=== PATIENT | female | born 1945 | race Caucasian/White ===

== ENCOUNTER 2017-01-20 14:05 | Inpatient (IN) | payer OTHER ==
[2017-01-20] MEDS ORDERED: diphenhydrAMINE HCL 25 MG CAPSULE (FP) PO ONE ×2 (15:00→15:29)
[2017-01-20 15:22] LABS: MCH 31.4 pg (25.7-33.7); MCHC 33.8 g/dl (32.0-36.0); MEAN CELL VOLUME 92.9 fl (80-96); PLATELET COUNT 400 K/MM3 (134-434); RDW 13.8 % (11.6-15.6); WHITE BLOOD COUNT 15.4 K/mm3 (4.0-10.0)
--- NOTE | 2017-01-20 15:53 | PDOC ---
History of Present Illness - General History Source: Patient Exam Limitations: No Limitations - History of Present Illness Initial Comments: 01/20/17 15:59 The patient is a 71 year old female with a significant past medical history of asthma who presents to the ED with complaints of generalized for malaise for several days and a rash for 2 days. The patient reports she recently came back from a cruise on Saturday and since then has been experiencing symptoms of generalized weakness, loss of appetite, slight nonproductive cough and shortness of breath worsened with exertion. Patient notes she visited her PMD on Saturday and was diagnosed with a minor viral sinus infection and given robitussin. Patient also reports a sudden onset of an intermittent rash that started in her arms. She states the rash is progressively worsening and developed throughout her extremities and her back. Patient reports the rash is itchy. Patient denies recent changes in shampoo, soap or lotion. Patient denies recent consumption of seafood. Denies fevers or chills. Denies chest pain or palpitations. Denies abdominal pain, nausea, vomiting, or diarrhea. Denies changes in urinary output. Denies any other symptoms. <Aldo French - Last Filed: 01/20/17 15:59> - General History Source: Patient Exam Limitations: No Limitations <Denver Andino - Last Filed: 01/20/17 18:54> - General Chief Complaint: Shortness of Breath Stated Complaint: BODY PAIN/ RASH/ COUGH Time Seen by Provider: 01/20/17 14:40 Past History <Aldo French - Last Filed: 01/20/17 15:59> - Past Medical History Other medical history: NONE - Psycho/Social/Smoking Cessation Hx Anxiety: No Suicidal Ideation: No Smoking History: Former smoker Have you smoked in the past 12 months: No If you are a former smoker, when did you quit?: 1992 Information on smoking cessation initiated: No Hx Alcohol Use: No Drug/Substance Use Hx: No Substance Use Type: None <Denver Andino - Last Filed: 01/20/17 18:54> - Past Medical History Allergies/Adverse Reactions: Allergies Allergy/AdvReac Type Severity Reaction Status Date / Time No Known Allergies Allergy Verified 01/20/17 14:12 Home Medications: Ambulatory Orders Montelukast Na [Singulair -] 10 mg PO HS 01/20/17 Review of Systems - Review of Systems Able to Perform ROS?: Yes Comments:: 01/20/17 15:59 GENERAL/CONSTITUTIONAL:+ malaise, generalized weakness, loss of appetite. No fever or chills. HEAD, EYES, EARS, NOSE AND THROAT: No change in vision. No ear pain or discharge. No sore throat. CARDIOVASCULAR: No chest pain or shortness of breath. RESPIRATORY:+ cough, SOB with exertion. No wheezing, or hemoptysis. GASTROINTESTINAL: No nausea, vomiting, diarrhea or constipation. GENITOURINARY: No dysuria, frequency, or change in urination. MUSCULOSKELETAL: No joint or muscle swelling or pain. No neck or back pain. SKIN:+ rash NEUROLOGIC: No headache, vertigo, loss of consciousness, or change in strength/ sensation. ENDOCRINE: No increased thirst. No abnormal weight change. HEMATOLOGIC/LYMPHATIC: No anemia, easy bleeding, or history of blood clots. ALLERGIC/IMMUNOLOGIC: No hives or skin allergy. All Other Systems: Reviewed and Negative <Aldo French - Last Filed: 01/20/17 15:59> *Physical Exam - Vital Signs Last Vital Signs Temp Pulse Resp BP Pulse Ox 97.4 F L 82 20 101/66 95 01/20/17 14:07 01/20/17 14:07 01/20/17 14:07 01/20/17 14:07 01/20/17 14:07 - Physical Exam Comments: 01/20/17 15:59 GENERAL:+ Thin. Awake, alert, and fully oriented, in no acute distress HEAD: No signs of trauma EYES: PERRLA, EOMI, sclera anicteric, conjunctiva clear ENT: Auricles normal inspection, hearing grossly normal, nares patent, oropharynx clear without exudates. Moist mucosa NECK: Normal ROM, supple, no lymphadenopathy, JVD, or masses LUNGS: Breath sounds equal, clear to auscultation bilaterally. No wheezes, and no crackles HEART: Regular rate and rhythm, normal S1 and S2, no murmurs, rubs or gallops ABDOMEN: Soft, nontender, normoactive bowel sounds. No guarding, no rebound. No masses EXTREMITIES: Normal range of motion, no edema. No clubbing or cyanosis. No cords, erythema, or tenderness NEUROLOGICAL: Cranial nerves II through XII grossly intact. Normal speech, normal gait SKIN:+ Diffuse maculopapular rash throughout back, and upper and lower extremities. Warm, Dry, normal turgor, no lesions noted. <Aldo French - Last Filed: 01/20/17 15:59> - Vital Signs Last Vital Signs Temp Pulse Resp BP Pulse Ox 97.4 F L 82 20 101/66 95 01/20/17 14:07 01/20/17 14:07 01/20/17 14:07 01/20/17 14:07 01/20/17 14:07 <Denver Andino - Last Filed: 01/20/17 18:54> Heart Score/ECG Review #1 ECG reviewed & interpreted by me at: 15:40 01/20/17 17:03 NSR 70, low voltage QRS, QTC 429 msec, no std/gucci, T wave flat avL <Denver Andino - Last Filed: 01/20/17 18:54> ED Treatment Course - LABORATORY CBC & Chemistry Diagram: 01/20/17 15:15 01/20/17 15:15 - ADDITIONAL ORDERS Additional order review: Laboratory Results 01/20/17 15:15 Sodium Cancelled Potassium Cancelled Chloride Cancelled Carbon Dioxide Cancelled Anion Gap Cancelled BUN Cancelled Creatinine Cancelled Creat Clearance w eGFR Cancelled Random Glucose Cancelled Calcium Cancelled Phosphorus Cancelled Magnesium Cancelled Total Bilirubin Cancelled AST Cancelled ALT Cancelled Alkaline Phosphatase Cancelled Creatine Kinase Cancelled Troponin I Cancelled B-Natriuretic Peptide Cancelled Total Protein Cancelled Albumin Cancelled 01/20/17 15:15 RBC 3.86 MCV 92.9 MCHC 33.8 RDW 13.8 MPV 7.0 L Neutrophils % Y Lymphocytes % Y - Medications Given in the ED: ED Medications Discontinued Medications Generic Name Dose Route Start Last Admin Trade Name Freq PRN Reason Stop Dose Admin Diphenhydramine HCl 25 mg 01/20/17 15:00 01/20/17 15:39 Benadryl - PO 01/20/17 15:01 25 mg ONCE ONE Administration <Aldo French - Last Filed: 01/20/17 15:59> - LABORATORY CBC & Chemistry Diagram: 01/20/17 15:15 01/20/17 17:00 - ADDITIONAL ORDERS Additional order review: Laboratory Results 01/20/17 15:15 Sodium 131 L Chloride 97 L Carbon Dioxide 25 Anion Gap 9 BUN 14 Creatinine 0.6 Creat Clearance w eGFR > 60 Random Glucose 106 Calcium 8.6 Phosphorus 3.6 ALT 85 H 01/20/17 15:15 RBC 3.86 MCV 92.9 MCHC 33.8 RDW 13.8 MPV 7.0 L Neutrophils % Y Lymphocytes % Y - RADIOLOGY Radiology Studies Ordered: Category Date Time Status CHEST PA & LAT [RAD] Stat Radiology 01/20/17 15:00 Ordered - Medications Given in the ED: ED Medications Discontinued Medications Generic Name Dose Route Start Last Admin Trade Name Freq PRN Reason Stop Dose Admin Diphenhydramine HCl 25 mg 01/20/17 15:00 01/20/17 15:39 Benadryl - PO 01/20/17 15:01 25 mg ONCE ONE Administration <Denver Andino - Last Filed: 01/20/17 18:54> Medical Decision Making - Medical Decision Making 01/20/17 17:04 A portion of this note was documented by scribe services under my direction. I have reviewed the details of the note, within reason, and agree with the documentation with the following case summary and management plan written by me. Patient treated in the ED. Nursing notes are reviewed and incorporated into the medical decision-making. Vital signs reviewed. Peripheral IV access obtained by the nurse, laboratory studies are drawn and sent, reviewed and interpreted by myself. Vital Signs Temp Pulse Resp BP Pulse Ox 97.4 F L 82 20 101/66 95 01/20/17 14:07 01/20/17 14:07 01/20/17 14:07 01/20/17 14:07 01/20/17 14:07 71-year-old female with past medical history of asthma presents with a rash. The patient recently came from a cruise. Upon arrival proximal one week ago, patient felt prodromal symptoms of general malaise, fatigue. She denies any fevers, chills, vomiting, diarrhea. Stated that she felt somewhat short of breath at rest and possibly on exertion. Denies cardiac history. Then patient had developed a diffuse rash throughout the body. She had seen her doctor who thought this may have been sinusitis. The patient does endorse a cough and SOB. Her rash appears potentially consistent with pityriasis rosea. There appears to be a small herald patch on the back and diffuse maculopapular erythema. Benadryl was given with improvement of symptoms. I have low suspicion for cardiac at this time and suspect this is more to do with her infectious symptoms. However, we'll send a troponin, chest x-ray, labs and reassess. 01/20/17 17:08 CBC, BMP 01/20/17 15:15 01/20/17 17:00 CMP Sodium 135 mmol/L (136-145) L 01/20/17 17:00 Potassium 4.2 mmol/L (3.5-5.1) 01/20/17 17:00 Chloride 97 mmol/L (98-107) L 01/20/17 17:00 Carbon Dioxide 25 mmol/L (21-32) 01/20/17 17:00 Anion Gap 13 (8-16) 01/20/17 17:00 BUN 13 mg/dL (7-18) 01/20/17 17:00 Creatinine 0.6 mg/dL (0.55-1.02) 01/20/17 17:00 Creat Clearance w eGFR > 60 (>60) 01/20/17 17:00 Random Glucose 102 mg/dL (74-106) 01/20/17 17:00 Lactic Acid 1.918 mmol/L (0.4-2.0) 01/20/17 17:36 Calcium 8.8 mg/dL (8.5-10.1) 01/20/17 17:00 Phosphorus Cancelled 01/20/17 15:15 Magnesium Cancelled 01/20/17 15:15 Total Bilirubin 0.4 mg/dL (0.2-1.0) 01/20/17 17:00 AST 74 U/L (15-37) H 01/20/17 17:00 ALT 82 U/L (12-78) H 01/20/17 17:00 Alkaline Phosphatase 99 U/L (45-117) 01/20/17 17:00 Creatine Kinase 43 IU/L (26-192) 01/20/17 17:00 Troponin I < 0.02 ng/ml (0.00-0.05) 01/20/17 17:00 B-Natriuretic Peptide 1371.72 pg/ml (5-125) H 01/20/17 17:00 Total Protein 6.2 g/dl (6.4-8.2) L 01/20/17 17:00 Albumin 2.3 g/dl (3.4-5.0) L 01/20/17 17:00 Chest xray reviewed. Demonstrates a large right sided pneumonia. Blood cultures ordered. Ceftriaxone and azithromycin ordered. Given elevated WBC, SOB, and large right sided infiltrate, will admit the patient for CAP. The benadryl had improved the rash. Case discussed with Dr. Banda. Will admit to community [facility] med[facility]surg admission. Case discussed in detail with admitting physician including history, physical exam and ancillary studies. Admitting physician has assumed care for the patient, will follow all pending diagnostics and will complete the evaluation and treatment. 01/20/17 18:[address] Browne. He will follows as a windows consultant. <Denver Andino - Last Filed: 01/20/17 18:54> *DC/Admit/Observation/Transfer - Attestations Scribe Attestion: 01/20/17 16:00 Documentation prepared by Aldo French, acting as medical oncology physician for Denver Andino MD <Aldo French - Last Filed: 01/20/17 15:59> - Discharge Dispostion Admit: Yes <Denver Andino - Last Filed: 01/20/17 18:54> Diagnosis at time of Disposition: Pityriasis rosea Pneumonia Qualifiers: Pneumonia type: due to unspecified organism Laterality: right Lung location: unspecified part of lung Qualified Code(s): J18.9 - Pneumonia, unspecified organism - Discharge Dispostion Condition at time of disposition: Stable
[2017-01-20 16:02] LABS: INR 1.46 (0.82-1.09); PROTHROMBIN TIME (PATIENT) 16.2 SEC (9.98-11.88)
[2017-01-20 16:04] LABS: ACTIVATED PTT 30.6 SECONDS (26.9-34.4)
[2017-01-20 16:17] LABS: PLATELET ESTIMATE ADEQUATE (NORMAL)
[2017-01-20] MEDS ORDERED: AZITHROMYCIN IVPB 500 MG in DEXTROSE 5%-WATER - 250 ML IVPB ONE (17:17)
[2017-01-20] MEDS ORDERED: CEFTRIAXONE 1 GM in DEXTROSE 5%-WATER - 50 ML IVPB ONE (17:17)
[2017-01-20 17:32] LABS: ALBUMIN 2.3 g/dl (3.4-5.0); ANION GAP 13 (8-16); BILIRUBIN,TOTAL 0.4 mg/dL (0.2-1.0); CALCIUM 8.8 mg/dL (8.5-10.1); CO2 25 mmol/L (21-32); COCKROFT - GAULT 66.5295; CREATININE 0.6 mg/dL (0.55-1.02); GLUCOSE,RANDOM 102 mg/dL (74-106); SGOT/AST 74 U/L (15-37); SGPT/ALT 82 U/L (12-78); TOT PROT 6.2 g/dl (6.4-8.2)
[2017-01-20 17:35] LABS: ALK PHOS 99 U/L (45-117); TROPONIN I < 0.02 ng/ml (0.00-0.05)
[2017-01-20] MEDS ORDERED: AZITHROMYCIN IVPB 250 ML IVPB ONE (17:40)
[2017-01-20] MEDS ORDERED: CEFTRIAXONE 50 ML ONE (17:40)
[2017-01-20 18:08] LABS: URINE APPEARANCE CLEAR; URINE BILIRUBIN NEGATIVE (NEGATIVE); URINE BLOOD NEGATIVE (NEGATIVE); URINE COLOR YELLOW; URINE GLUCOSE (UA) NEGATIVE (NEGATIVE); URINE KETONE NEGATIVE (NEGATIVE); URINE LEUK ESTERASE NEGATIVE (NEGATIVE); URINE NITRITE NEGATIVE (NEGATIVE); URINE PROTEIN NEGATIVE (NEGATIVE); URINE UROBILINOGEN NEGATIVE E.U./dl (0.2-1.0)
--- NOTE | 2017-01-20 18:11 | PN ---
Teaching Attending Note Name of Resident: Yusuf Pickett ATTENDING PHYSICIAN STATEMENT I saw and evaluated the patient. I reviewed the resident's note and discussed the case with the resident. I agree with the resident's findings and plan as documented. SUBJECTIVE: OBJECTIVE: ASSESSMENT AND PLAN: 71yo F with PMH asthma presented to the ER with rash and cough 1. CAP- medicine admission. start on Ceftriaxone and Azithromycin. supplemental oxygen to maintain spO2 >90%. f/u Cx. 2. Rash-
--- NOTE | 2017-01-20 19:13 | PN ---
<Amber Howell - Last Filed: 01/20/17 19:13> Teaching Attending Note Name of Resident: Chris Ba ATTENDING PHYSICIAN STATEMENT I saw and evaluated the patient. I reviewed the resident's note and discussed the case with the resident. I agree with the resident's findings and plan as documented. SUBJECTIVE: OBJECTIVE: ASSESSMENT AND PLAN: <AlexGuicho - Last Filed: 01/20/17 20:34> Teaching Attending Note ATTENDING PHYSICIAN STATEMENT I saw and evaluated the patient. I reviewed the resident's note and discussed the case with the resident. I agree with the resident's findings and plan as documented. SUBJECTIVE: The patient is a 71 year old female with a significant past medical history of asthma who presented to the ED for evaluation of fatigue for several days and rash for 2 days. The patient reported that she recently saw her PMD on 01/16/17 and was diagnosed with viral sinusitis Patient described her rash as intermittent, itchy, starting on her arms, progressively worsening, and radiating to her extremities and her back Patient denied fevers, cough, or chills. Patient denied chest pain or palpitations. Patient denied abdominal pain, nausea, vomiting, or diarrhea. PAST MEDICAL HISTORY: Asthma PAST SURGICAL HISTORY: No significant history reported FAMILY HISTORY: No pertinent history reported SOCIAL HISTORY: Former smoker (quit 1992) MEDICATIONS: As per nursing note. No new medications reported ALLERGIES: NKDA OBJECTIVE: Last Vital Signs 3 Temp Pulse Resp BP Pulse Ox 98.9 F 83 18 93/67 98 01/20/17 18:19 01/20/17 18:19 01/20/17 18:19 01/20/17 18:19 01/20/17 18:19 Physical Exam: GEN: NAD HEENT: NCAT, PERRL CARD: RRR, S1 S2 RESP: (+) Decreased breath sounds right lower lobe ABD: NT, BWS x4 EXT: - CCE SKIN: (+) Several papules on back and bilateral lower extremities Labs: CBCD 3 WBC 15.4 K/mm3 (4.0-10.0) H 01/20/17 15:15 RBC 3.86 M/mm3 (3.60-5.2) 01/20/17 15:15 Hgb 12.1 GM/dL (10.7-15.3) 01/20/17 15:15 Hct 35.9 % (32.4-45.2) 01/20/17 15:15 MCV 92.9 fl (80-96) 01/20/17 15:15 MCHC 33.8 g/dl (32.0-36.0) 01/20/17 15:15 RDW 13.8 % (11.6-15.6) 01/20/17 15:15 Plt Count 400 K/MM3 (134-434) 01/20/17 15:15 MPV 7.0 fl (7.5-11.1) L 01/20/17 15:15 CMP 3 Sodium 135 mmol/L (136-145) L 01/20/17 17:00 Potassium 4.2 mmol/L (3.5-5.1) 01/20/17 17:00 Chloride 97 mmol/L (98-107) L 01/20/17 17:00 Carbon Dioxide 25 mmol/L (21-32) 01/20/17 17:00 Anion Gap 13 (8-16) 01/20/17 17:00 BUN 13 mg/dL (7-18) 01/20/17 17:00 Creatinine 0.6 mg/dL (0.55-1.02) 01/20/17 17:00 Creat Clearance w eGFR > 60 (>60) 01/20/17 17:00 Calcium 8.8 mg/dL (8.5-10.1) 01/20/17 17:00 Total Bilirubin 0.4 mg/dL (0.2-1.0) 01/20/17 17:00 AST 74 U/L (15-37) H 01/20/17 17:00 ALT 82 U/L (12-78) H 01/20/17 17:00 Alkaline Phosphatase 99 U/L (45-117) 01/20/17 17:00 Total Protein 6.2 g/dl (6.4-8.2) L 01/20/17 17:00 Albumin 2.3 g/dl (3.4-5.0) L 01/20/17 17:00 Imaging: EXAM: Chest X-Ray. Impression: right sided infiltrate. Official report pending. ASSESSMENT AND PLAN: The patient is a 71 year old female with a significant past medical history of asthma who presented with rash found to have right sided pneumonia 1. CAD - Continue ceftriaxone and azithromycin - Urine antigens 2. Rash ? pityriasis rosea - Benadryl for itching 3. Transaminitis - Trend - Hepatitis panel 4. Asmth - Albuterol PRN - Continue with singular 5. DVT PPX- low risk - Ambulate Admit to med surg. Documentation prepared by Guicho Johnson, acting as medical laboratory scientist for Dr. Amber Howell MD.
[2017-01-20] MEDS ORDERED: ACETAMINOPHEN 325 MG TABLET (FP) PO PRN (19:30)
[2017-01-20] MEDS ORDERED: ALBUTEROL SO4 2.5/IPRATROPIUM 0.5 INH SOL 3 ML VIAL.NEB. NEB PRN (19:33)
--- NOTE | 2017-01-20 20:05 | HP ---
CHIEF COMPLAINT: PCP: Dr Gilliam [facility] HISTORY OF PRESENT ILLNESS: 71 year old female with significant pmh of Asthma and Pneumonia presented to the ED from a cruise ship on Saturday with with non productive cough, shortness of breath, generalized weakness and a diffuse maculopapular rash. The symptoms started on Saturday on the cruise ship with generalized weakness, malaise, fatigue, listlessness. On Saturday patient developed a dry non productive cough, decreased appetite and arthralgia. On Saturday and Saturday, pt continues all of her activity of daily living including going to work despite her symptoms. Pt went to her PCP on Saturday where she was diagnosed with viral Sinusitis and was sent home on . However her symptoms gradually progressed and she developed shortness of breath worsened by exertion, lightheadedness with change of position from lying to standing. Yesterday patient developed a pruritus malucolopapular rash that started from arm/hands/palm to chest, abdomen and lower extremity. Rash has improved in ED since receiving Benadryl. Pt denies fever, chills, n/v, vomiting, productive cough, chest pain. ER course was notable for: (1) WBC 15.4 (2) CXR showed right lower lobe infiltrates (No official reading yet) (3) Azithromycin, Ceftriaxone Recent Travel: Cruise [facility] came back on Friday January 13, 2017 PAST MEDICAL HISTORY: Asthma and Pneumonia PAST SURGICAL HISTORY: B/l knee surgery (meniscus) Social History: Smoking: former smoker 30pack year quit in Alcohol: none Drugs: none Family History: Mother at 99 of old age father with h/o HTN, DM, diet of heart attack at 67 Allergies No Known Allergies Allergy (Verified 01/20/17 14:12) HOME MEDICATIONS: Home Medications Medication Instructions Recorded Montelukast Na [Singulair -] 10 mg PO HS 01/20/17 REVIEW OF SYSTEMS CONSTITUTIONAL: generalized weakness, malaise, loss of appetite Absent: fever, chills, diaphoresis,, weight change HEENT: Absent: rhinorrhea, nasal congestion, throat pain, throat swelling, difficulty swallowing, mouth swelling, ear pain, eye pain, visual changes CARDIOVASCULAR: lightheadedness Absent: chest pain, syncope, palpitations, irregular heart rate,, peripheral edema RESPIRATORY: cough, dyspnea with exertion Absent: shortness of breath, orthopnea, wheezing, stridor, hemoptysis GASTROINTESTINAL: Absent: abdominal pain, abdominal distension, nausea, vomiting, diarrhea, constipation, melena, hematochezia GENITOURINARY: Absent: dysuria, frequency, urgency, hesitancy, hematuria, flank pain, genital pain MUSCULOSKELETAL: arthralgia Absent: myalgia, joint swelling, back pain, neck pain SKIN: Absent: rash, itching, pallor HEMATOLOGIC/IMMUNOLOGIC: Absent: easy bleeding, easy bruising, lymphadenopathy, frequent infections ENDOCRINE: Absent: unexplained weight gain, unexplained weight loss, heat intolerance, cold intolerance NEUROLOGIC: Absent: headache, focal weakness or paresthesias, dizziness, unsteady gait, seizure, mental status changes, bladder or bowel incontinence PSYCHIATRIC: Absent: anxiety, depression, suicidal or homicidal ideation, hallucinations. PHYSICAL EXAMINATION Vital Signs - 24 hr 01/20/17 01/20/17 14:07 18:19 Temperature 97.4 F L 98.9 F Pulse Rate 82 Pulse Rate [ 83 Apical] Respiratory 20 18 Rate Blood Pressure 101/66 Blood Pressure 93/67 [Left Arm] O2 Sat by Pulse 95 98 Oximetry (%) GENERAL: Awake, alert, and fully oriented, thin lady, in no acute distress. HEAD: Normal with no signs of trauma. EYES: Pupils equal, round and reactive to light, extraocular movements intact, sclera anicteric, conjunctiva clear. No lid lag. EARS, NOSE, THROAT: Ears normal, nares patent, oropharynx clear without exudates. Moist mucous membranes. NECK: Normal range of motion, supple without lymphadenopathy, JVD, or masses. LUNGS:clear to auscultation in left lung, right lower lung field with crackles and diminished breath sound. No wheezes. No accessory muscle use. HEART: Regular rate and rhythm, normal S1 and S2 without murmur, rub or gallop. ABDOMEN: Soft, nontender, not distended, normoactive bowel sounds, no guarding, no rebound, no masses. No hepatomegaly or splenomegaly. MUSCULOSKELETAL: Normal range of motion at all joints. No bony deformities or tenderness. No CVA tenderness. UPPER EXTREMITIES: 2+ pulses, warm, well-perfused. No cyanosis. No clubbing. No peripheral edema. LOWER EXTREMITIES: 2+ pulses, warm, well-perfused. No calf tenderness. No peripheral edema. NEUROLOGICAL: Cranial nerves II-XII intact. Normal speech. Normal gait. PSYCHIATRIC: Cooperative. Good eye contact. Appropriate mood and affect. SKIN: Warm, dry, normal turgor, no rashes or lesions noted, normal capillary refill. Papules in back, maculopapular rash in b/l lower ext Laboratory Results - last 24 hr 01/20/17 01/20/17 01/20/17 15:15 15:15 15:15 WBC 15.4 H RBC 3.86 Hgb 12.1 Hct 35.9 MCV 92.9 MCHC 33.8 RDW 13.8 Plt Count 400 MPV 7.0 L Neutrophils % 91.0 H Lymphocytes % 4.0 L Eosinophils % 1.0 Band Neutrophils 4.0 Differential Comment Manual diff done Platelet Estimate Adequate INR 1.46 H PTT (Actin FS) 30.6 Sodium Cancelled Potassium Cancelled Chloride Cancelled Carbon Dioxide Cancelled Anion Gap Cancelled BUN Cancelled Creatinine Cancelled Creat Clearance w eGFR Cancelled Random Glucose Cancelled Lactic Acid Calcium Cancelled Phosphorus Cancelled Magnesium Cancelled Total Bilirubin Cancelled AST Cancelled ALT Cancelled Alkaline Phosphatase Cancelled Creatine Kinase Cancelled Troponin I Cancelled B-Natriuretic Peptide Cancelled Total Protein Cancelled Albumin Cancelled Urine Color Urine Appearance Urine pH Urine Protein Urine Glucose (UA) Urine Ketones Urine Blood Urine Nitrite Urine Bilirubin Urine Urobilinogen Ur Leukocyte Esterase 01/20/17 01/20/17 01/20/17 17:00 17:36 18:00 WBC RBC Hgb Hct MCV MCHC RDW Plt Count MPV Neutrophils % Lymphocytes % Eosinophils % Band Neutrophils Differential Comment Platelet Estimate INR PTT (Actin FS) Sodium 135 L Potassium 4.2 Chloride 97 L Carbon Dioxide 25 Anion Gap 13 BUN 13 Creatinine 0.6 Creat Clearance w eGFR > 60 Random Glucose 102 Lactic Acid 1.918 Calcium 8.8 Phosphorus Magnesium Total Bilirubin 0.4 AST 74 H ALT 82 H Alkaline Phosphatase 99 Creatine Kinase 43 Troponin I < 0.02 B-Natriuretic Peptide 1371.72 H Total Protein 6.2 L Albumin 2.3 L Urine Color Yellow Urine Appearance Clear Urine pH 6.0 Urine Protein Negative Urine Glucose (UA) Negative Urine Ketones Negative Urine Blood Negative Urine Nitrite Negative Urine Bilirubin Negative Urine Urobilinogen Negative Ur Leukocyte Esterase Negative CBC, BMP 01/20/17 15:15 01/20/17 17:00 ASSESSMENT/PLAN: 71 year old female with significant pmh of Asthma and PNA presented to the ED from a cruise ship on Saturday with with non productive cough, shortness of breath , generalized weakness and a diffuse maculopapular rash. Pt was found to right lower lobe pneumonia on CXR Community Acquired Pneumonia CURB65 score 1 Pt has wbc 15, cough and xray finding of pneumonia No recent hospital admission, Pt lives at home Recent cruise ship makes you worry about legionella Lobar location of the pneumonia makes you worry about typical pneumonia such as Pneumoccocus CBC in am F/u blood culture urine culture Sputum culture Urine for pneumonia antigens ceftriaxone 1gm Iv daily Azithromycin 500mg IV daily ID consulted for PNA and rash Pulmonary consulted for PNA Maculopapular rash R/o pityriasis rosea vs viral prodrome Benadryl PRN for rash and prurutis Acetaminophen PRN for arthralgia IV fluid NS at 75ml/h ID consulted for rash Transaminitis hepatits panel LFTs in am Asthma Resume Singulair Duoneb Prn Pulmonary consulted FEN Fluid: NS at 75ml/h Electrolytes: no abnormalities, chemistry in am Nutrition: regular DVT : SCD, early ambulation, Physical therapy Fall precaution : orthostatic vitals, OOB with assist, Physical therapy Disposition: admit to [facility] Visit type - Emergency Visit Emergency Visit: Yes ED Registration Date: 01/20/17 Care time: The patient presented to the Emergency Department on the above date and was hospitalized for further evaluation of their emergent condition. - New Patient This patient is new to me today: Yes Date on this admission: 01/21/17 - Critical Care Critical Care patient: No
[2017-01-20] MEDS: SODIUM CHLORIDE 1,000 ML IV SCH (22:14)
[2017-01-20] MEDS: MONTELUKAST NA 10 MG TABLET PO SCH (22:14)
[2017-01-20 23:39] VITALS: BMI 17.2
[2017-01-21 07:52] LABS: MCH 32.2 pg (25.7-33.7); MCHC 34.5 g/dl (32.0-36.0); MEAN CELL VOLUME 93.1 fl (80-96); MEAN PLT VOLUME 7.3 fl (7.5-11.1); PLATELET COUNT 410 K/MM3 (134-434); WHITE BLOOD COUNT 11.5 K/mm3 (4.0-10.0)
[2017-01-21 08:28] LABS: CALCIUM 7.9 mg/dL (8.5-10.1); COCKROFT - GAULT 69.7; CREATININE 0.6 mg/dL (0.55-1.02); MAGNESIUM 2.1 mg/dL (1.8-2.4)
[2017-01-21 08:39] LABS: ALBUMIN 2.2 g/dl (3.4-5.0); BILIRUBIN,DIRECT 0.1 mg/dL (0.0-0.2); BILIRUBIN,TOTAL 0.4 mg/dL (0.2-1.0); TOT PROT 5.8 g/dl (6.4-8.2)
[2017-01-21] MEDS: diphenhydrAMINE HCL 25 MG CAPSULE (FP) PO PRN (08:51)
[2017-01-21] MEDS: AZITHROMYCIN IVPB 250 ML IVPB SCH (09:01)
[2017-01-21] MEDS: CEFTRIAXONE 50 ML IVPB SCH (09:01)
[2017-01-21] MEDS: SODIUM CHLORIDE 1,000 ML IV SCH ×2 (09:02→21:41)
--- NOTE | 2017-01-21 09:17 | CONSULT ---
Consultation: REQUESTING PROVIDER: CONSULT REQUEST: We have been asked to medically evaluate this patient for ( infectious ds ). HISTORY OF PRESENT ILLNESS: 71 year old female with significant pmh of Asthma and Pneumonia( in 1997, 1999 treated as out patient) who recently came back from cruise ship ( [employer]). Patient states she started having a flu like symptoms on her trip she felt generalized weak, arthralia, myalgia. She came back on saturday. On saturday she had dry cough and and later on she also noticed a sob which was progressively increasing. On saturday she went to her pcp who started her on but her symptoms progressed. She also reports rashes that started from arm/hands/palm to chest, abdomen and lower extremity started on Saturday and which comes and goes. She denies fever, chills. sick contact. She was found to be febrile in hospital.She also reports lihtheadidness which get improved after coming to hospital. Pt denies fever, chills, n/v, vomiting, productive cough, chest pain. 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 Lives by her self in apartment. REVIEW OF SYSTEMS: CONSTITUTIONAL: Absent: fever, chills, diaphoresis, generalized weakness, malaise, loss of appetite, weight change HEENT: Absent: rhinorrhea, nasal congestion, throat pain, throat swelling, difficulty swallowing, mouth swelling, ear pain, eye pain, visual changes CARDIOVASCULAR: Absent: chest pain, syncope, palpitations, irregular heart rate, lightheadedness , peripheral edema RESPIRATORY: Absent: cough, shortness of breath, dyspnea with exertion, orthopnea, wheezing, stridor, hemoptysis GASTROINTESTINAL: Absent: abdominal pain, abdominal distension, nausea, vomiting, diarrhea, GENITOURINARY: Absent: dysuria, frequency, urgency, hesitancy, MUSCULOSKELETAL: Absent: myalgia, arthralgia, joint swelling, back pain, neck pain SKIN: Absent: rash, itching, pallor HEMATOLOGIC/IMMUNOLOGIC: Absent: easy bleeding, easy bruising, PHYSICAL EXAMINATION Vital Signs - 24 hr 01/20/17 01/21/17 22:47 07:42 Temperature 98.9 F 99.2 F Pulse Rate 88 73 Respiratory 18 20 Rate Blood Pressure 100/60 80/40 O2 Sat by Pulse 98 Oximetry (%) GENERAL: Awake, alert, and fully oriented, in no acute distress. HEAD: Normal with no signs of trauma. EYES: Pupils equal, round and reactive to light, EARS, NOSE, THROAT: Ears normal, nares patent, oropharynx clear without exudates. Moist mucous membranes. NECK: Normal range of motion, supple without lymphadenopathy, LUNGS: Breath sounds equal, clear to auscultation bilaterally. No wheezes, crackles present in right basal area . No accessory muscle use. HEART: s1s2 n ABDOMEN: Soft, nontender, not distended, normoactive bowel sounds, no guarding, no rebound, no masses. UPPER EXTREMITIES: 2+ pulses, warm, well-perfused. SKIN: Warm, dry, rash present spares palm. Laboratory Results - last 24 hr 01/21/17 01/21/17 01/21/17 06:30 06:30 06:30 WBC 11.5 H RBC 3.46 L Hgb 11.1 Hct 32.3 L MCV 93.1 MCHC 34.5 RDW 14.0 Plt Count 410 MPV 7.3 L Sodium 132 L Potassium 4.4 Chloride 97 L Carbon Dioxide 24 Anion Gap 11 BUN 12 Creatinine 0.6 Random Glucose 88 Calcium 7.9 L Magnesium 2.1 Total Bilirubin 0.4 Direct Bilirubin 0.1 AST 59 H D ALT 70 Alkaline Phosphatase 90 Total Protein 5.8 L Albumin 2.2 L Active Medications Generic Name Dose Route Start Last Admin Trade Name Freq PRN Reason Stop Dose Admin Acetaminophen 650 mg 01/20/17 19:30 Tylenol - PO Q4H PRN FEVER OR PAIN Albuterol/Ipratropium 1 amp 01/20/17 19:33 Duoneb - NEB Q4H PRN SHORT OF BREATH/WHEEZING Diphenhydramine HCl 50 mg 01/21/17 08:26 01/21/17 08:51 Benadryl - PO 50 mg Q6H PRN Administration FOR ITCHING Azithromycin 250 mls @ 250 mls/hr 01/21/17 10:00 01/21/17 09:01 Zithromax 500mg Ivpb (Pre-Docked) IVPB 250 mls/hr DAILY LOU Administration Ceftriaxone Sodium 50 mls @ 100 mls/hr 01/21/17 10:00 01/21/17 09:01 Rocephin 1gm Ivpb (Pre-Docked) IVPB 100 mls/hr DAILY LOU Administration Sodium Chloride 1,000 mls @ 75 mls/hr 01/20/17 20:15 01/21/17 09:02 Normal Saline - IV 75 mls/hr ASDIR LOU Administration Montelukast Sodium 10 mg 01/20/17 22:00 01/20/17 22:14 Singulair - PO 10 mg HS LOU Administration ASSESSMENT/PLAN: pneumonia mild LFTs and WBC elevation Plan Continue with Ceftriaxone and Azithromycin get Blood cultures uriine for LEG antigen and strep Cold agglutinins Mycoplasma serology HIV testing Dispo: We will continue to follow the patient. Thank you for this consultative opportunity. Visit type - Emergency Visit Emergency Visit: Yes ED Registration Date: 01/20/17 Care time: The patient presented to the Emergency Department on the above date and was hospitalized for further evaluation of their emergent condition. - New Patient This patient is new to me today: Yes Date on this admission: 01/21/17 - Critical Care Critical Care patient: No
--- NOTE | 2017-01-21 09:55 | PN ---
Teaching Attending Note Name of Resident: Kareem Salguero ATTENDING PHYSICIAN STATEMENT I saw and evaluated the patient. I reviewed the resident's note and discussed the case with the resident. I agree with the resident's findings and plan as documented. SUBJECTIVE:Fevers generalized malaise developed upon returning from a 7 days cruise to [facility] left boat OBJECTIVE:Few rales RLL Macular rash arms legs back spares palms ASSESSMENT AND PLAN:Viral exanthem with pneumonia mild LFTs and WBC elevation Plan Continue Ceftriaxone and Azithromycin Blood cultures LEG antigen Cold agglutinins Mycoplasma serology HIV testing RPR Mirtha VUONG
--- NOTE | 2017-01-21 10:00 | CON.PULM ---
Consult Consult Specialty:: PULMONARY Referred by:: Dr. Ba Reason for Consultation:: pneumonia - History of Present Illness Chief Complaint: generalized weakness History of Present Illness: 71yo female with h/o asthma who presents with generalized weakness x 1 week. She just came back from a cruise ship to [facility] when she started experiencing flu like symptoms including body aches, nonproductive cough. No fevers, chills or sweats. Was seen by her PMD who prescribed her cough suppressants. Started to experience shortness of breath 2 days ago. No chest, back pain or discomfort. Also reports a pruritic rash affecting her entire body including palms of her hands and face. No sick contacts. She is a former smoker, lives alone, still working as an legislators. - History Source History Provided By: Patient, Medical Record Limitations to Obtaining History: No Limitations - Past Medical History Pulmonary: Yes: Asthma - Alcohol/Substance Use Hx Alcohol Use: No - Smoking History Smoking history: Former smoker Have you smoked in the past 12 months: No If you are a former smoker, when did you quit?: 1992 Home Medications - Allergies Allergies/Adverse Reactions: Allergies Allergy/AdvReac Type Severity Reaction Status Date / Time No Known Allergies Allergy Verified 01/20/17 14:12 - Home Medications Home Medications: Ambulatory Orders Montelukast Na [Singulair -] 10 mg PO HS 01/20/17 Review of Systems - Review of Systems Constitutional: reports: Malaise, Weakness. denies: Chills, Fever Eyes: denies: Recent Change in Vision HENT: denies: Nasal Congestion, Throat Pain Neck: denies: Stiffness, Tenderness Cardiovascular: reports: Shortness of Breath. denies: Chest Pain, Edema, Palpitations Respiratory: reports: Cough, SOB, SOB on Exertion. denies: Hemoptysis, Wheezing Gastrointestinal: denies: Abdominal Pain, Nausea, Vomiting Genitourinary: denies: Dysuria, Hematuria Integumentary: reports: Rash Neurological: denies: Dizziness, Headache Endocrine: denies: Unexplained Weight Loss Physical Exam Vital Sings: Vital Signs Temperature 99.2 F 01/21/17 07:42 Pulse Rate 73 01/21/17 07:42 Respiratory Rate 20 01/21/17 07:42 Blood Pressure 80/40 01/21/17 07:42 O2 Sat by Pulse Oximetry (%) 98 01/20/17 22:47 Constitutional: Yes: Calm Eyes: Yes: Conjunctiva Clear, EOM Intact HENT: Yes: Atraumatic, Normocephalic Neck: Yes: Supple, Trachea Midline Cardiovascular: Yes: Regular Rate and Rhythm Respiratory: Yes: Regular, Diminished (decreased breath sounds right base), Rales (right base) ...Clubbing: No Gastrointestinal: Yes: Normal Bowel Sounds, Soft. No: Tenderness Edema: No Neurological: Yes: Alert, Oriented Labs: CBC, BMP 01/21/17 06:30 01/21/17 06:30 Imaging - Results Chest X-ray: Report Reviewed, Image Reviewed (right lower lobe infiltrate/ consolidation) Problem List - Problems (1) Pneumonia Code(s): J18.9 - PNEUMONIA, UNSPECIFIED ORGANISM Qualifiers: Pneumonia type: due to unspecified organism Laterality: right Lung location: unspecified part of lung Qualified Code(s): J18.9 - Pneumonia, unspecified organism (2) Rash Code(s): R21 - RASH AND OTHER NONSPECIFIC SKIN ERUPTION (3) Asthma Code(s): J45.909 - UNSPECIFIED ASTHMA, UNCOMPLICATED Assessment/Plan Pneumonia Asthma Rash Elevated LFTs - agree with current antibiotic coverage - f/u cultures - f/u legionella antigen - monitor fever curve, WBC trend - inhaled bronchodilators as needed - singulair - will need f/u chest imaging as outpt in 6-8 weeks to ensure resolution of infiltrate - DVT prophylaxis Thank you for this consult Gurdeep Sky MD
[2017-01-21 12:11] LABS: HIV 1 & 2 AB NEGATIVE; HIV 1 AGp24 NEGATIVE
[2017-01-21] MEDS: LACTOBACILLUS ACIDOPHILUS 1 EACH TAB (FP) PO SCH (12:37)
--- NOTE | 2017-01-21 13:06 | PN ---
Teaching Attending Note Name of Resident: Brie Gustafson ATTENDING PHYSICIAN STATEMENT I saw and evaluated the patient. I reviewed the resident's note and discussed the case with the resident. I agree with the resident's findings and plan as documented. SUBJECTIVE:dyspnea improved but worsens on exertion. continues to have non- productive cough. rash improved, resolved on arms but present on abdomen and legs. pruritis resolved with benadryl. denies CP, SOB,fever, chills, N/V/C/D OBJECTIVE: Last Vital Signs Temp Pulse Resp BP Pulse Ox 99.2 F 73 20 80/40 98 01/21/17 07:42 01/21/17 07:42 01/21/17 07:42 01/21/17 07:42 01/20/17 22:47 General NAD CV S1 S2 RRR no murmur/rub/gallop Lungs decreased breath sounds R base, CTA L lung field Skin macular rash on B/L LE, very faint on the back. no excoriations or pustules or nodules ASSESSMENT AND PLAN: 71yo F with PMH asthma presented to the ER and was admitted for PNA 1. RLL CAP- clinically improved. tolerating without supplemental oxygen. concern for mycoplasma and legionella. Uantigens sent. on Azithromycin and Ceftriaxone day 2. ID and pulmonary on board. f/u Cx. HIV testing 2. Macular rash- likely related to infection. improved per pt. cont benadryl prn 3. Transaminitis- improved. hepatitis panel pending 4. Hyponatremia- asymptomatic. on IVF 5. DVT ppx- EAM
--- NOTE | 2017-01-21 14:05 | EKG ---
Test Reason : Blood Pressure : / mmHG Vent. Rate : 070 BPM Atrial Rate : 070 BPM P-R Int : 132 ms QRS Dur : 084 ms QT Int : 398 ms P-R-T Axes : 076 066 062 degrees QTc Int : 429 ms SINUS RHYTHM WITH PREMATURE SUPRAVENTRICULAR COMPLEXES POSSIBLE LEFT ATRIAL ENLARGEMENT LOW VOLTAGE QRS BORDERLINE ECG WHEN COMPARED WITH ECG OF 04-JUL-1998 08:26, PREMATURE SUPRAVENTRICULAR COMPLEXES ARE NOW PRESENT VENT. RATE HAS INCREASED BY 28 BPM Confirmed by LORI PALMER MD ([id number]) on 01/21/2017 2:04:51 PM Referred By: Confirmed By:LORI PALMER MD
--- NOTE | 2017-01-21 18:06 | PN ---
Physical Exam: SUBJECTIVE: Patient seen and examined by me at bedside. No overnight events noted. Patient reports she continues to have a dry cough. She reports the rash improved overnight but is now itching. When examining the patient a maculopapular rash was found in bilateral legs, arms and back. Otherwise, patient denies fever, chills, nausea, vomiting, shortness of breath, chest pain , palpitations. OBJECTIVE: Vital Signs Period Temp Pulse Resp BP Sys/Funez Pulse Ox Last 24 Hr 98.4 F-99.2 F 73-88 17-20 80-100/40-60 97-98 GENERAL: The patient is awake, alert, and fully oriented, in no acute distress. ENT: Oropharynx clear without exudates, moist mucous membranes. NECK: Trachea midline, full range of motion, supple. LUNGS: Decreased breath sounds in Right base. No wheezes, no crackles, no accessory muscle use. HEART: Regular rate and rhythm, S1, S2 without murmur, rub or gallop. ABDOMEN: Soft, nontender, nondistended, normoactive bowel sounds, no guarding. EXTREMITIES: No peripheral edema. SKIN: Maculopapular rash in B/L lower extremities, bilateral arms and back. Laboratory Results - last 24 hr 01/21/17 01/21/17 01/21/17 06:30 06:30 06:30 WBC 11.5 H RBC 3.46 L Hgb 11.1 Hct 32.3 L MCV 93.1 MCHC 34.5 RDW 14.0 Plt Count 410 MPV 7.3 L Sodium 132 L Potassium 4.4 Chloride 97 L Carbon Dioxide 24 Anion Gap 11 BUN 12 Creatinine 0.6 Random Glucose 88 Calcium 7.9 L Magnesium 2.1 Total Bilirubin 0.4 Direct Bilirubin 0.1 AST 59 H D ALT 70 Alkaline Phosphatase 90 Total Protein 5.8 L Albumin 2.2 L HIV 1&2 Antibody Screen HIV P24 Antigen 01/21/17 10:25 WBC RBC Hgb Hct MCV MCHC RDW Plt Count MPV Sodium Potassium Chloride Carbon Dioxide Anion Gap BUN Creatinine Random Glucose Calcium Magnesium Total Bilirubin Direct Bilirubin AST ALT Alkaline Phosphatase Total Protein Albumin HIV 1&2 Antibody Screen Negative HIV P24 Antigen Negative Active Medications Generic Name Dose Route Start Last Admin Trade Name Freq PRN Reason Stop Dose Admin Acetaminophen 650 mg 01/20/17 19:30 Tylenol - PO Q4H PRN FEVER OR PAIN Albuterol/Ipratropium 1 amp 01/20/17 19:33 Duoneb - NEB Q4H PRN SHORT OF BREATH/WHEEZING Diphenhydramine HCl 50 mg 01/21/17 08:26 01/21/17 08:51 Benadryl - PO 50 mg Q6H PRN Administration FOR ITCHING Azithromycin 250 mls @ 250 mls/hr 01/21/17 10:00 01/21/17 09:01 Zithromax 500mg Ivpb (Pre-Docked) IVPB 250 mls/hr DAILY LOU Administration Ceftriaxone Sodium 50 mls @ 100 mls/hr 01/21/17 10:00 01/21/17 09:01 Rocephin 1gm Ivpb (Pre-Docked) IVPB 100 mls/hr DAILY LOU Administration Sodium Chloride 1,000 mls @ 75 mls/hr 01/20/17 20:15 01/21/17 09:02 Normal Saline - IV 75 mls/hr ASDIR LOU Administration Lactobacillus Acidophilus 1 tab 01/21/17 12:15 01/21/17 12:37 Bacid - PO 1 tab DAILY LOU Administration Montelukast Sodium 10 mg 01/20/17 22:00 01/20/17 22:14 Singulair - PO 10 mg HS LOU Administration Images: Chest X-ray (01/20/17): Right lower lobe consolidation consistent with Pneumonia ASSESSMENT/PLAN: Patient is a 71 year old female with a PMHx of asthma who presented after a cruise ship on Saturday with a non-productive cough, shortness of breath and diffuse maculopapular rash. Patient was found to have a right lower lobe pneumonia on chest x-ray and was admitted for further monitoring and management. Community Acquired Pneumonia -RLL consolidation on Chest x-ray -WBC's trended down today -Urine antigens negative for Legionella and Pneumococcus due to patient being on a recent ship cruise. -Sputum and urine cultures pending -Blood cultures pending -HIV and syphilis work up ordered -Cold agglutinins and mycoplasma serology ordered to rule out mycoplasma pneumoniae -ID consult placed for pneumonia and rash -Pulmonary consult placed for pneumonia -Continue with Ceftriaxone 1gm daily day #2 -Continue with Azithromycin 500mg daily day #2 -Continue IV NS @75mls/hr -Oxygen PRN -Will continue to monitor CBC Maculopapular Rash-Acute -Possibly due to viral prodrome -Improves with Benadryl and will continue 50mg PO Q6H -Tylenol 650mg Q6H PRN for pain Transaminitis- Improving -Hepatitis panel ordered -Will continue to monitor Hyponatremia-Acute -Today 132 -Will continue with IV NS @75mls/hr -Continue to trend CMP Asthma- Chronic -Continue Singulair -Continue Duoneb Prn -Pulmonary consult placed F/E/N -IV NS @75mls/hr -Hyponatremia: continue with IV NS @75mls/hr -Regular diet Prophylaxis -Ambulates and SCD's for DVT Disposition -Awaiting for cultures. Likely to be discharged tomorrow Visit type - Emergency Visit Emergency Visit: Yes ED Registration Date: 01/20/17 Care time: The patient presented to the Emergency Department on the above date and was hospitalized for further evaluation of their emergent condition. - New Patient This patient is new to me today: Yes Date on this admission: 01/21/17 - Critical Care Critical Care patient: No
[2017-01-21] MEDS ORDERED: IBUPROFEN 400 MG TABLET (FP) PO ONE (21:18)
[2017-01-21] MEDS: MONTELUKAST NA 10 MG TABLET PO SCH (21:41)
[2017-01-22] MEDS: diphenhydrAMINE HCL 25 MG CAPSULE (FP) PO PRN ×3 (00:45→14:13)
[2017-01-22] MEDS: SODIUM CHLORIDE 1,000 ML IV SCH ×2 (02:40→21:44)
--- NOTE | 2017-01-22 07:51 | PN ---
Physical Exam: SUBJECTIVE: Patient seen and examined by me at bedside. Patient reports last night she had joint pain in both of her hands and soon after the joint pain she broke out in to a rash again. She reports the rash was all over her legs, arms , back, and face. They gave her Motrin and Benadryl which resolved the joint pain and rash. Otherwise, patient denies fever, chills, nausea, vomiting, abdominal pain, chest pain, palpitations, shortness of breath. OBJECTIVE: Vital Signs Period Temp Pulse Resp BP Sys/Funez Pulse Ox Last 24 Hr 97.9 F-99.1 F 78-83 17-20 91-105/57-68 97-99 GENERAL: The patient is awake, alert, and fully oriented, in no acute distress. ENT: Oropharynx clear without exudates, moist mucous membranes. NECK: Trachea midline, full range of motion, supple. LUNGS: Decreased breath sounds in Right base with crackles. No wheezes or accessory muscle use. HEART: Regular rate and rhythm, S1, S2 without murmur, rub or gallop. ABDOMEN: Soft, nontender, nondistended, normoactive bowel sounds, no guarding. EXTREMITIES: No peripheral edema. Laboratory Results - last 24 hr 01/21/17 01/21/17 01/21/17 06:30 06:30 06:30 WBC 11.5 H RBC 3.46 L Hgb 11.1 Hct 32.3 L MCV 93.1 MCHC 34.5 RDW 14.0 Plt Count 410 MPV 7.3 L Sodium 132 L Potassium 4.4 Chloride 97 L Carbon Dioxide 24 Anion Gap 11 BUN 12 Creatinine 0.6 Random Glucose 88 Calcium 7.9 L Magnesium 2.1 Total Bilirubin Direct Bilirubin AST ALT Alkaline Phosphatase Total Protein Albumin Hepatitis A IgM Ab Negative Hep Bs Antigen Negative Hep B Core IgM Ab Negative Hepatitis C Ab (EIA) <0.1 HIV 1&2 Antibody Screen HIV P24 Antigen 01/21/17 01/21/17 06:30 10:25 WBC RBC Hgb Hct MCV MCHC RDW Plt Count MPV Sodium Potassium Chloride Carbon Dioxide Anion Gap BUN Creatinine Random Glucose Calcium Magnesium Total Bilirubin 0.4 Direct Bilirubin 0.1 AST 59 H D ALT 70 Alkaline Phosphatase 90 Total Protein 5.8 L Albumin 2.2 L Hepatitis A IgM Ab Hep Bs Antigen Hep B Core IgM Ab Hepatitis C Ab (EIA) HIV 1&2 Antibody Screen Negative HIV P24 Antigen Negative Active Medications Generic Name Dose Route Start Last Admin Trade Name Freq PRN Reason Stop Dose Admin Acetaminophen 650 mg 01/20/17 19:30 Tylenol - PO Q4H PRN FEVER OR PAIN Albuterol/Ipratropium 1 amp 01/20/17 19:33 Duoneb - NEB Q4H PRN SHORT OF BREATH/WHEEZING Diphenhydramine HCl 50 mg 01/21/17 08:26 01/22/17 00:45 Benadryl - PO 50 mg Q6H PRN Administration FOR ITCHING Azithromycin 250 mls @ 250 mls/hr 01/21/17 10:00 01/21/17 09:01 Zithromax 500mg Ivpb (Pre-Docked) IVPB 250 mls/hr DAILY LOU Administration Ceftriaxone Sodium 50 mls @ 100 mls/hr 01/21/17 10:00 01/21/17 09:01 Rocephin 1gm Ivpb (Pre-Docked) IVPB 100 mls/hr DAILY LOU Administration Sodium Chloride 1,000 mls @ 75 mls/hr 01/20/17 20:15 01/22/17 02:40 Normal Saline - IV 75 mls/hr ASDIR LOU Administration Lactobacillus Acidophilus 1 tab 01/21/17 12:15 01/21/17 12:37 Bacid - PO 1 tab DAILY LOU Administration Montelukast Sodium 10 mg 01/20/17 22:00 01/21/17 21:41 Singulair - PO 10 mg HS LOU Administration Images: Chest X-ray (01/20/17): Right lower lobe consolidation consistent with Pneumonia ASSESSMENT/PLAN: Patient is a 71 year old female with a PMHx of asthma who presented after a cruise ship on Saturday with a non-productive cough, shortness of breath and diffuse maculopapular rash. Patient was found to have a right lower lobe pneumonia on chest x-ray and was admitted for further monitoring and management. Community Acquired Pneumonia -RLL consolidation on Chest x-ray -WBC's trended down today -Urine antigens negative for Legionella and Pneumococcus -Blood cultures NGTD -HIV and hepatitis work up negative -Cold agglutinins Negative -Mycoplasma serology pending -Continue with Ceftriaxone 1gm daily day #3 -Continue with Azithromycin 500mg daily day #3 -Continue IV NS @75mls/hr -Oxygen PRN -Will continue to monitor CBC -Pulm and ID on board Maculopapular Rash-Acute -Possibly due to viral prodrome -Improves with Benadryl and will continue 50mg PO Q6H -Tylenol 650mg Q6H PRN for pain Transaminitis- Improving -Hepatitis panel negative -Will continue to monitor Hyponatremia-Resolved -Will continue with IV NS @75mls/hr -Continue to trend CMP Asthma- Chronic -Continue Singulair -Continue Duoneb Prn -Pulmonary consult placed F/E/N -IV NS @75mls/hr -Electrolytes wnl -Regular diet Prophylaxis -Ambulates and SCD's for DVT Disposition - Patient continues to have rash and fever this morning. Will monitor overnight and possibly discharge tomorrow Visit type - Emergency Visit Emergency Visit: Yes ED Registration Date: 01/20/17 Care time: The patient presented to the Emergency Department on the above date and was hospitalized for further evaluation of their emergent condition. - New Patient This patient is new to me today: Yes Date on this admission: 01/24/17 - Critical Care Critical Care patient: No
[2017-01-22 08:22] LABS: MCH 31.6 pg (25.7-33.7); MCHC 33.9 g/dl (32.0-36.0); MEAN CELL VOLUME 93.2 fl (80-96); PLATELET COUNT 429 K/MM3 (134-434); RDW 14.1 % (11.6-15.6); WHITE BLOOD COUNT 12.8 K/mm3 (4.0-10.0)
[2017-01-22 08:38] LABS: ANION GAP 14 (8-16); CO2 21 mmol/L (21-32); SGOT/AST 47 U/L (15-37); SGPT/ALT 64 U/L (12-78)
[2017-01-22 08:43] LABS: ALBUMIN 1.9 g/dl (3.4-5.0); ALK PHOS 79 U/L (45-117); BILIRUBIN,TOTAL 0.4 mg/dL (0.2-1.0); CALCIUM 7.8 mg/dL (8.5-10.1); CREATININE 0.4 mg/dL (0.55-1.02); GLUCOSE,RANDOM 87 mg/dL (74-106); TOT PROT 5.2 g/dl (6.4-8.2)
[2017-01-22] MEDS: LACTOBACILLUS ACIDOPHILUS 1 EACH TAB (FP) PO SCH (09:08)
[2017-01-22] MEDS: AZITHROMYCIN IVPB 250 ML IVPB SCH (09:10)
[2017-01-22] MEDS: CEFTRIAXONE 50 ML IVPB SCH (09:10)
--- NOTE | 2017-01-22 09:32 | PN ---
Progress Note (short form) - Note Progress Note: PULMONARY Febrile this AM to 101. Rash waxes/wanes with benadryl. Cultures negative so far. Last Vital Signs Temp Pulse Resp BP Pulse Ox 99.1 F 82 20 102/58 99 01/22/17 07:12 01/22/17 07:12 01/22/17 07:12 01/22/17 07:12 01/21/17 21:00 Gen: NAD at rest Heart: RRR Lung: decreased breath sounds right base Abd: soft, nontender Ext: no edema, no clubbing, +maculopapular rash CBC, BMP 01/22/17 06:30 01/22/17 06:30 Active Medications Acetaminophen (Tylenol -) 650 mg PO Q4H PRN PRN Reason: FEVER OR PAIN Last Admin: 01/22/17 08:04 Dose: 650 mg Albuterol/Ipratropium (Duoneb -) 1 amp NEB Q4H PRN PRN Reason: SHORT OF BREATH/WHEEZING Diphenhydramine HCl (Benadryl -) 50 mg PO Q6H PRN PRN Reason: FOR ITCHING Last Admin: 01/22/17 09:07 Dose: 50 mg Azithromycin (Zithromax 500mg Ivpb (Pre-Docked)) 250 mls @ 250 mls/hr IVPB DAILY [facility] Last Admin: 01/22/17 09:10 Dose: 250 mls/hr Ceftriaxone Sodium (Rocephin 1gm Ivpb (Pre-Docked)) 50 mls @ 100 mls/hr IVPB DAILY [facility] Last Admin: 01/22/17 09:10 Dose: 100 mls/hr Sodium Chloride (Normal Saline -) 1,000 mls @ 75 mls/hr IV ASDIR [facility] Last Admin: 01/22/17 02:40 Dose: 75 mls/hr Lactobacillus Acidophilus (Bacid -) 1 tab PO DAILY [facility] Last Admin: 01/22/17 09:08 Dose: 1 tab Montelukast Sodium (Singulair -) 10 mg PO HS [facility] Last Admin: 01/21/17 21:41 Dose: 10 mg A/P Pneumonia Asthma Rash Elevated LFTs - continue antibiotics - f/u cultures - f/u pending serologies - monitor fever curve, WBC trend - inhaled bronchodilators as needed - singulair - will need f/u chest imaging as outpt in 6-8 weeks to ensure resolution of infiltrate - DVT prophylaxis Problem List - Problems (1) Pneumonia Code(s): J18.9 - PNEUMONIA, UNSPECIFIED ORGANISM Qualifiers: Pneumonia type: due to unspecified organism Laterality: right Lung location: unspecified part of lung Qualified Code(s): J18.9 - Pneumonia, unspecified organism (2) Rash Code(s): R21 - RASH AND OTHER NONSPECIFIC SKIN ERUPTION (3) Asthma Code(s): J45.909 - UNSPECIFIED ASTHMA, UNCOMPLICATED
--- NOTE | 2017-01-22 12:59 | PN ---
Physical Exam: SUBJECTIVE: Patient seen and examined Patient feels better, sates cough has improved. has fever of >101. states she has rashes in night and they got better after taking benadryl OBJECTIVE: Vital Signs Period Temp Pulse Resp BP Sys/Funez Pulse Ox Last 24 Hr 97.9 F-101.6 F 78-83 19-20 91-105/57-68 99 Laboratory Results - last 24 hr 01/21/17 01/22/17 01/22/17 06:30 06:30 06:30 WBC 12.8 H RBC 3.66 Hgb 11.6 Hct 34.1 MCV 93.2 MCHC 33.9 RDW 14.1 Plt Count 429 MPV 7.0 L Sodium 138 Potassium 4.2 Chloride 103 Carbon Dioxide 21 Anion Gap 14 BUN 8 D Creatinine 0.4 L D Creat Clearance w eGFR > 60 Random Glucose 87 Calcium 7.8 L Total Bilirubin 0.4 AST 47 H D ALT 64 Alkaline Phosphatase 79 Total Protein 5.2 L Albumin 1.9 L Hepatitis A IgM Ab Negative Hep Bs Antigen Negative Hep B Core IgM Ab Negative Hepatitis C Ab (EIA) <0.1 Active Medications Generic Name Dose Route Start Last Admin Trade Name Freq PRN Reason Stop Dose Admin Acetaminophen 650 mg 01/20/17 19:30 01/22/17 08:04 Tylenol - PO 650 mg Q4H PRN Administration FEVER OR PAIN Albuterol/Ipratropium 1 amp 01/20/17 19:33 Duoneb - NEB Q4H PRN SHORT OF BREATH/WHEEZING Diphenhydramine HCl 50 mg 01/21/17 08:26 01/22/17 09:07 Benadryl - PO 50 mg Q6H PRN Administration FOR ITCHING Azithromycin 250 mls @ 250 mls/hr 01/21/17 10:00 01/22/17 09:10 Zithromax 500mg Ivpb (Pre-Docked) IVPB 250 mls/hr DAILY LOU Administration Ceftriaxone Sodium 50 mls @ 100 mls/hr 01/21/17 10:00 01/22/17 09:10 Rocephin 1gm Ivpb (Pre-Docked) IVPB 100 mls/hr DAILY LOU Administration Sodium Chloride 1,000 mls @ 75 mls/hr 01/20/17 20:15 01/22/17 02:40 Normal Saline - IV 75 mls/hr ASDIR LOU Administration Lactobacillus Acidophilus 1 tab 01/21/17 12:15 01/22/17 09:08 Bacid - PO 1 tab DAILY LOU Administration Montelukast Sodium 10 mg 01/20/17 22:00 01/21/17 21:41 Singulair - PO 10 mg HS LOU Administration Microbiology 01/20/17 18:00 Urine - Urine Clean Catch Urine Culture - Final NO GROWTH OBTAINED 01/20/17 17:36 Blood - Peripheral Venous Blood Culture - Preliminary NO GROWTH OBTAINED AFTER 24 HOURS, INCUBATION TO CONTINUE FOR 4 DAYS. 01/20/17 17:36 Blood - Peripheral Venous Blood Culture - Preliminary NO GROWTH OBTAINED AFTER 24 HOURS, INCUBATION TO CONTINUE FOR 4 DAYS. 01/20/17 19:34 Urine For Antigen Detection Legionella Antigen - Final 01/20/17 19:34 Urine For Antigen Detection Streptococcus pneumoniae Antigen (M - Final ASSESSMENT/PLAN: pneumonia with cxr shows right lower lobe consolidation Plan patient has one episode of fever > 101F Continue with Ceftriaxone and Azithromycin blood and urien culture negative legionella antigen negative Cold agglutinins pending Mycoplasma serology pending HIV testing Visit type - Emergency Visit Emergency Visit: Yes ED Registration Date: 01/20/17 Care time: The patient presented to the Emergency Department on the above date and was hospitalized for further evaluation of their emergent condition. - New Patient This patient is new to me today: No - Critical Care Critical Care patient: No
--- NOTE | 2017-01-22 14:13 | PN ---
Teaching Attending Note Name of Resident: Kareem Salguero ATTENDING PHYSICIAN STATEMENT I saw and evaluated the patient. I reviewed the resident's note and discussed the case with the resident. I agree with the resident's findings and plan as documented. SUBJECTIVE: sitting in the [facility], episode of fever to 101 this am, now feels great, continues to have urticaria responxive to benadryl othter chavez feels well OBJECTIVE: Vital Signs Period Temp Pulse Resp BP Sys/Funez Pulse Ox Last 24 Hr 97.9 F-101.6 F 78-83 17-20 91-105/57-68 95-99 cor-rrr lungs crackles right base abd soft,nt ext no edema +urticaria CBC, BMP 01/22/17 06:30 01/22/17 06:30 Microbiology 01/20/17 18:00 Urine - Urine Clean Catch Urine Culture - Final NO GROWTH OBTAINED 01/20/17 17:36 Blood - Peripheral Venous Blood Culture - Preliminary NO GROWTH OBTAINED AFTER 24 HOURS, INCUBATION TO CONTINUE FOR 4 DAYS. 01/20/17 17:36 Blood - Peripheral Venous Blood Culture - Preliminary NO GROWTH OBTAINED AFTER 24 HOURS, INCUBATION TO CONTINUE FOR 4 DAYS. 01/20/17 19:34 Urine For Antigen Detection Legionella Antigen - Final 01/20/17 19:34 Urine For Antigen Detection Streptococcus pneumoniae Antigen (M - Final ASSESSMENT AND PLAN: pneumonia with urticaria continue rocephin/zith serologies and cultures pending hiv negative
--- NOTE | 2017-01-22 18:28 | PN ---
Teaching Attending Note Name of Resident: Brie Gustafson ATTENDING PHYSICIAN STATEMENT I saw and evaluated the patient. I reviewed the resident's note and discussed the case with the resident. I agree with the resident's findings and plan as documented. SUBJECTIVE: Had fever 101.6 this morning. Continues to have pruritic rash intermittently. Currently has no complaints. OBJECTIVE: Vital Signs Period Temp Pulse Resp BP Sys/Funez Pulse Ox Last 24 Hr 97.2 F-101.6 F 72-112 17-20 94-105/58-63 95-99 HEART: S1 S2, RRR LUNGS: Clear ABDOMEN: Soft, non-tender, non-distended, normal BS EXTREMITIES: No edema ASSESSMENT AND PLAN: This is a 71-year-old woman with a history of asthma who presented to the ER with cough, SOB, weakness and a rash. 1. Sepsis secondary to pneumonia - Febrile with increased WBC this morning - Continue Rocephin, Zithromax - Urine Legionella and Pneumococcal Ag negative - Blood cultures negative - Mycoplasma, HIV serologies pending 2. Macular rash - Continue Benadryl as needed 3. Hepatic transaminitis - Improved - Hepatitis panel negative 4. Hyponatremia - Improved
[2017-01-22] MEDS ORDERED: IBUPROFEN 400 MG TABLET (FP) PO ONE (21:07)
[2017-01-22] MEDS: MONTELUKAST NA 10 MG TABLET PO SCH (21:44)
[2017-01-23] MEDS: diphenhydrAMINE HCL 25 MG CAPSULE (FP) PO PRN ×2 (02:58→09:11)
[2017-01-23] MEDS: SODIUM CHLORIDE 1,000 ML IV SCH (06:54)
[2017-01-23 08:00] LABS: MCHC 33.5 g/dl (32.0-36.0); MEAN CELL VOLUME 92.6 fl (80-96); MEAN PLT VOLUME 7.3 fl (7.5-11.1); PLATELET COUNT 456 K/MM3 (134-434); WHITE BLOOD COUNT 9.8 K/mm3 (4.0-10.0)
[2017-01-23 09:03] LABS: CALCIUM 7.6 mg/dL (8.5-10.1); COCKROFT - GAULT 83.64; CREATININE 0.5 mg/dL (0.55-1.02)
[2017-01-23] MEDS: CEFTRIAXONE 50 ML IVPB SCH (09:10)
[2017-01-23] MEDS: LACTOBACILLUS ACIDOPHILUS 1 EACH TAB (FP) PO SCH (09:10)
[2017-01-23] MEDS: AZITHROMYCIN IVPB 250 ML IVPB SCH (09:11)
--- NOTE | 2017-01-23 11:30 | PN ---
Progress Note (short form) - Note Progress Note: PULMONARY FEBRILE/WEAK IN APPEARANCE PALE/ANICTERIC RIGHT BASE CRACKLES S1S2 BS+ NO EDEMA LABS/MEDS/NOTES/IMAGING REVIEWED A/P Pneumonia Asthma Rash Elevated LFTs - continue antibiotics - monitor fever curve, WBC trending down - inhaled bronchodilators as needed - will need ct chest - DVT prophylaxis - Hope to proceed w discharge planning CRISTOBAL Gomez MD
--- NOTE | 2017-01-23 13:44 | PN ---
Teaching Attending Note Name of Resident: Kareem Salguero ATTENDING PHYSICIAN STATEMENT I saw and evaluated the patient. I reviewed the resident's note and discussed the case with the resident. I agree with the resident's findings and plan as documented. SUBJECTIVE: feels better still getting rash intermittently OBJECTIVE: Vital Signs Period Temp Pulse Resp BP Sys/Funez Pulse Ox Last 24 Hr 97.2 F-99.8 F 72-112 18-20 88-103/52-58 96-100 cor-rrr lungs crackles, decreased bs n right abd soft,nt ext no edema CBC, BMP 01/23/17 06:00 01/23/17 06:00 Microbiology 01/20/17 17:36 Blood - Peripheral Venous Blood Culture - Preliminary NO GROWTH OBTAINED AFTER 48 HOURS, INCUBATION TO CONTINUE FOR 3 DAYS. 01/20/17 17:36 Blood - Peripheral Venous Blood Culture - Preliminary NO GROWTH OBTAINED AFTER 48 HOURS, INCUBATION TO CONTINUE FOR 3 DAYS. 01/20/17 18:00 Urine - Urine Clean Catch Urine Culture - Final NO GROWTH OBTAINED 01/20/17 19:34 Urine For Antigen Detection Legionella Antigen - Final 01/20/17 19:34 Urine For Antigen Detection Streptococcus pneumoniae Antigen (M - Final ASSESSMENT AND PLAN: pneumonia rash fevers improving, f/u cultures and serology f/u chest ct continue rocephin/zithromax
--- NOTE | 2017-01-23 13:54 | PN ---
Physical Exam: SUBJECTIVE: Patient seen and examined patient feels better tmax 99.8 cough has improved rash improving. OBJECTIVE: Vital Signs Period Temp Pulse Resp BP Sys/Funez Pulse Ox Last 24 Hr 97.2 F-99.8 F 72-112 18-20 88-103/52-58 96-100 GENERAL: Awake, alert, and fully oriented, in no acute distress. HEAD: Normal with no signs of trauma. NECK: Normal range of motion, supple without lymphadenopathy, LUNGS: Breath sounds equal, clear to auscultation bilaterally. No wheezes, crackles present in right basal area . No accessory muscle use. HEART: s1s2 n ABDOMEN: Soft, nontender, not distended, normoactive bowel sounds, no guarding, no rebound, no masses. UPPER EXTREMITIES: 2+ pulses, warm, well-perfused. SKIN: Warm, dry, rash present spares palm. Laboratory Results - last 24 hr 01/21/17 01/22/17 01/23/17 10:25 21:36 06:00 WBC 9.8 RBC 3.51 L Hgb 10.9 Hct 32.5 MCV 92.6 MCHC 33.5 RDW 14.0 Plt Count 456 H MPV 7.3 L Sodium Potassium Chloride Carbon Dioxide Anion Gap BUN Creatinine POC Glucometer 98 Random Glucose Calcium Cold Agglutinins Negative 01/23/17 06:00 WBC RBC Hgb Hct MCV MCHC RDW Plt Count MPV Sodium 139 Potassium 3.9 Chloride 105 Carbon Dioxide 22 Anion Gap 12 BUN 8 Creatinine 0.5 L D POC Glucometer Random Glucose 84 Calcium 7.6 L Cold Agglutinins Active Medications Generic Name Dose Route Start Last Admin Trade Name Freq PRN Reason Stop Dose Admin Acetaminophen 650 mg 01/20/17 19:30 01/22/17 08:04 Tylenol - PO 650 mg Q4H PRN Administration FEVER OR PAIN Albuterol/Ipratropium 1 amp 01/20/17 19:33 Duoneb - NEB Q4H PRN SHORT OF BREATH/WHEEZING Diphenhydramine HCl 50 mg 01/21/17 08:26 01/23/17 09:11 Benadryl - PO 50 mg Q6H PRN Administration FOR ITCHING Azithromycin 250 mls @ 250 mls/hr 01/21/17 10:00 01/23/17 09:11 Zithromax 500mg Ivpb (Pre-Docked) IVPB 250 mls/hr DAILY LOU Administration Ceftriaxone Sodium 50 mls @ 100 mls/hr 01/21/17 10:00 01/23/17 09:10 Rocephin 1gm Ivpb (Pre-Docked) IVPB 100 mls/hr DAILY LOU Administration Lactobacillus Acidophilus 1 tab 01/21/17 12:15 01/23/17 09:10 Bacid - PO 1 tab DAILY LOU Administration Montelukast Sodium 10 mg 01/20/17 22:00 01/22/17 21:44 Singulair - PO 10 mg HS LOU Administration ASSESSMENT/PLAN: pneumonia with cxr shows right lower lobe consolidation Plan Continue with Ceftriaxone and Azithromycin ct chest reviewed mycoplasma serology pending legionella and strep pneumo negative Visit type - Emergency Visit Emergency Visit: Yes ED Registration Date: 01/20/17 Care time: The patient presented to the Emergency Department on the above date and was hospitalized for further evaluation of their emergent condition. - New Patient This patient is new to me today: No - Critical Care Critical Care patient: No
[2017-01-23 14:14] LABS: MYCOPLASMA PNEUMONIAE,IG G AB <100 U/mL (0-99)
--- NOTE | 2017-01-23 15:58 | PN ---
Physical Exam: SUBJECTIVE: Patient seen and examined by me at bedside. Patient reports around 0300 last night her rash returned as well as her joint pain. She took Motrin and benadryl and both symptoms resolved. She offers no complaints. Otherwise, denies fever, chills, nausea, abdominal pain, chest pain, palpitations, shortness of breath. OBJECTIVE: Vital Signs Period Temp Pulse Resp BP Sys/Funez Pulse Ox Last 24 Hr 97.2 F-99.8 F 61-112 18-20 88-103/52-58 96-100 GENERAL: The patient is awake, alert, and fully oriented, in no acute distress. LUNGS: Decreased breath sounds in Right base with crackles. No wheezes or accessory muscle use. HEART: Regular rate and rhythm, S1, S2 without murmur, rub or gallop. ABDOMEN: Soft, nontender, nondistended, normoactive bowel sounds, no guarding. EXTREMITIES: 1+ pitting edema Laboratory Results - last 24 hr 01/21/17 01/21/17 01/22/17 10:25 10:25 21:36 WBC RBC Hgb Hct MCV MCHC RDW Plt Count MPV Sodium Potassium Chloride Carbon Dioxide Anion Gap BUN Creatinine POC Glucometer 98 Random Glucose Calcium Cold Agglutinins Negative M.pneumoniae IgG Titer <100 M.pneumoniae IgM Titer <770 01/23/17 01/23/17 06:00 06:00 WBC 9.8 RBC 3.51 L Hgb 10.9 Hct 32.5 MCV 92.6 MCHC 33.5 RDW 14.0 Plt Count 456 H MPV 7.3 L Sodium 139 Potassium 3.9 Chloride 105 Carbon Dioxide 22 Anion Gap 12 BUN 8 Creatinine 0.5 L D POC Glucometer Random Glucose 84 Calcium 7.6 L Cold Agglutinins M.pneumoniae IgG Titer M.pneumoniae IgM Titer Active Medications Generic Name Dose Route Start Last Admin Trade Name Freq PRN Reason Stop Dose Admin Acetaminophen 650 mg 01/20/17 19:30 01/22/17 08:04 Tylenol - PO 650 mg Q4H PRN Administration FEVER OR PAIN Albuterol/Ipratropium 1 amp 01/20/17 19:33 Duoneb - NEB Q4H PRN SHORT OF BREATH/WHEEZING Diphenhydramine HCl 50 mg 01/21/17 08:26 01/23/17 09:11 Benadryl - PO 50 mg Q6H PRN Administration FOR ITCHING Azithromycin 250 mls @ 250 mls/hr 01/21/17 10:00 01/23/17 09:11 Zithromax 500mg Ivpb (Pre-Docked) IVPB 250 mls/hr DAILY LOU Administration Ceftriaxone Sodium 50 mls @ 100 mls/hr 01/21/17 10:00 01/23/17 09:10 Rocephin 1gm Ivpb (Pre-Docked) IVPB 100 mls/hr DAILY LOU Administration Lactobacillus Acidophilus 1 tab 01/21/17 12:15 01/23/17 09:10 Bacid - PO 1 tab DAILY LOU Administration Montelukast Sodium 10 mg 01/20/17 22:00 01/22/17 21:44 Singulair - PO 10 mg HS LOU Administration Images: Chest X-ray (01/20/17): Right lower lobe consolidation consistent with Pneumonia ASSESSMENT/PLAN: Patient is a 71 year old female with a PMHx of asthma who [place] cruise ship [place] Saturday with a non-productive cough, shortness of breath and diffuse maculopapular rash. Patient was found to have a right lower lobe pneumonia on chest x-ray and was admitted for further monitoring and management. Community Acquired Pneumonia -RLL consolidation on Chest x-ray -CT chest revealed Pleural effusion with multiple lung nodules -Thoracocentesis ordered -No leukocytosis -Urine antigens negative for Legionella and Pneumococcus -Blood cultures NGTD -HIV and hepatitis work up negative -Cold agglutinins Negative -Mycoplasma serology negative -Continue with Ceftriaxone 1gm daily day #4 -Continue with Azithromycin 500mg daily day #4 -Discontinue IV NS @75mls/hr due to peripheral edema -Oxygen PRN -Will continue to monitor CBC -Pulm and ID on board Maculopapular Rash-Acute -Possibly due to viral prodrome -Improves with Benadryl and will continue 50mg PO Q6H -Tylenol 650mg Q6H PRN for pain Transaminitis- Improving -Hepatitis panel negative -Will continue to monitor Hyponatremia-Resolved -IV fluids discontinued -Continue to trend CMP Asthma- Chronic -Continue Singulair -Continue Duoneb Prn -Pulmonary consult placed F/E/N -No fluids -Electrolytes wnl -Regular diet. Prophylaxis -Ambulates and SCD's for DVT Disposition -CT chest revealed right pleural effusion. Thoracocentesis ordered. Visit type - Emergency Visit Emergency Visit: Yes ED Registration Date: 01/20/17 Care time: The patient presented to the Emergency Department on the above date and was hospitalized for further evaluation of their emergent condition. - New Patient This patient is new to me today: No - Critical Care Critical Care patient: No
[2017-01-23] MEDS ORDERED: PHYTONADIONE 5 MG TABLET PO ONE (16:01)
--- NOTE | 2017-01-23 16:04 | PN ---
Progress Note (short form) - Note Progress Note: PULMONARY ADDENDUM TO NOTE RESULTS OF CT CHEST REVIEWED WITH PGY-1 BILOBAR RIGHT PNEUMONIA WITH MODERATE PLEURAL EFFUSION PATCHY /NODULAR INFILTRATES ON LEFT SUGGEST THORACENTESIS Anabela ARROYO MD
--- NOTE | 2017-01-23 17:12 | PN ---
Teaching Attending Note Name of Resident: Brie Gustafson ATTENDING PHYSICIAN STATEMENT I saw and evaluated the patient. I reviewed the resident's note and discussed the case with the resident. I agree with the resident's findings and plan as documented. SUBJECTIVE: Patient has no complaints. OBJECTIVE: Vital Signs Period Temp Pulse Resp BP Sys/Funez Pulse Ox Last 24 Hr 97.2 F-99.8 F 61-112 18-20 88-103/52-58 96-100 HEART: S1 S2, RRR LUNGS: Crackles at right base ABDOMEN: Soft, non-tender, non-distended, normal BS EXTREMITIES: No edema ASSESSMENT AND PLAN: This is a 71-year-old woman with a history of asthma who presented to the ER with cough, SOB, weakness and a rash. 1. Sepsis secondary to pneumonia - Afebrile and WBC improved - Continue Rocephin, Zithromax - Urine Legionella and Pneumococcal Ag negative, Mycoplasma, HIV serologies negative - Blood cultures negative - Chest CT shows RML/RLL/LLL infiltrates with moderate right effusion - Plan for thoracentesis 2. Macular rash - Continue Benadryl as needed 3. Hepatic transaminitis - Improved - Hepatitis panel negative 4. Hyponatremia - Improved
[2017-01-23] MEDS: MONTELUKAST NA 10 MG TABLET PO SCH (21:09)
[2017-01-24 08:27] LABS: MCH 31.8 pg (25.7-33.7); MCHC 34.1 g/dl (32.0-36.0); MEAN CELL VOLUME 93.2 fl (80-96); MEAN PLT VOLUME 7.2 fl (7.5-11.1); PLATELET COUNT 505 K/MM3 (134-434); RDW 13.9 % (11.6-15.6); WHITE BLOOD COUNT 7.9 K/mm3 (4.0-10.0)
[2017-01-24 08:35] LABS: CALCIUM 7.9 mg/dL (8.5-10.1); COCKROFT - GAULT 104.55; CREATININE 0.4 mg/dL (0.55-1.02)
[2017-01-24 08:54] LABS: INR 1.23 (0.82-1.09); PROTHROMBIN TIME (PATIENT) 13.6 SEC (9.98-11.88)
[2017-01-24 08:57] LABS: ACTIVATED PTT 29.1 SECONDS (26.9-34.4)
--- NOTE | 2017-01-24 09:30 | PN ---
Physical Exam: SUBJECTIVE: Patient seen and examined by me at bedside. No overnight events noted. Patient reports her legs are swollen but has no tenderness or calf pain. No rashes reported since yesterday morning and no joint swelling or pain since yesterday morning. Patient is aware that she will be having a thoracocentesis done today. Otherwise, patient denies fever, chills, nausea, vomiting, chest pain, palpitations, shortness of breath. OBJECTIVE: Vital Signs Period Temp Pulse Resp BP Sys/Funez Pulse Ox Last 24 Hr 98.6 F-99.8 F 61-85 18-20 95-108/53-58 97 GENERAL: The patient is awake, alert, and fully oriented, in no acute distress. LUNGS: Decreased breath sounds in Right base with crackles. No wheezes or accessory muscle use. HEART: Regular rate and rhythm, S1, S2 without murmur, rub or gallop. ABDOMEN: Soft, nontender, nondistended, normoactive bowel sounds, no guarding. EXTREMITIES: trace pitting edema of bilateral lower extremities with bilateral swelling of the feet. Laboratory Results - last 24 hr 01/21/17 01/24/17 01/24/17 10:25 07:00 07:00 WBC 7.9 RBC 3.26 L Hgb 10.4 L Hct 30.4 L MCV 93.2 MCHC 34.1 RDW 13.9 Plt Count 505 H MPV 7.2 L Sodium 139 Potassium 4.6 Chloride 104 Carbon Dioxide 26 Anion Gap 9 BUN 9 Creatinine 0.4 L Random Glucose 91 Calcium 7.9 L M.pneumoniae IgG Titer <100 M.pneumoniae IgM Titer <770 Active Medications Generic Name Dose Route Start Last Admin Trade Name Freq PRN Reason Stop Dose Admin Acetaminophen 650 mg 01/20/17 19:30 01/22/17 08:04 Tylenol - PO 650 mg Q4H PRN Administration FEVER OR PAIN Albuterol/Ipratropium 1 amp 01/20/17 19:33 Duoneb - NEB Q4H PRN SHORT OF BREATH/WHEEZING Diphenhydramine HCl 50 mg 01/21/17 08:26 01/23/17 09:11 Benadryl - PO 50 mg Q6H PRN Administration FOR ITCHING Azithromycin 250 mls @ 250 mls/hr 01/21/17 10:00 01/23/17 09:11 Zithromax 500mg Ivpb (Pre-Docked) IVPB 250 mls/hr DAILY LOU Administration Ceftriaxone Sodium 50 mls @ 100 mls/hr 01/21/17 10:00 01/23/17 09:10 Rocephin 1gm Ivpb (Pre-Docked) IVPB 100 mls/hr DAILY LOU Administration Lactobacillus Acidophilus 1 tab 01/21/17 12:15 01/23/17 09:10 Bacid - PO 1 tab DAILY LOU Administration Montelukast Sodium 10 mg 01/20/17 22:00 01/23/17 21:09 Singulair - PO 10 mg HS LOU Administration Images: Chest X-ray (01/20/17): Right lower lobe consolidation consistent with Pneumonia. Chest CT (01/23/17): Right middle lobe, right lower lobe pneumonia involving the majority of segments of the right lower lobe with moderate reactive right pleural effusion. Right parahilar airspace opacities of infectious etiology. Several peribronchial airspace opacities are noted in left lower lobe of infectious etiology. No endobronchial lesion is lesion. ASSESSMENT/PLAN: Patient is a 71 year old female with a PMHx of asthma who presented [place] with a non-productive cough, shortness of breath and diffuse maculopapular rash. Patient was found to have a right lower lobe pneumonia on chest x-ray and was admitted for further monitoring and management. Community Acquired Pneumonia -RLL consolidation on Chest x-ray -CT chest revealed Pleural effusion with multiple lung nodules -Thoracocentesis scheduled for today -No leukocytosis -Urine antigens negative for Legionella and Pneumococcus -Blood cultures NGTD -HIV and hepatitis work up negative -Cold agglutinins Negative -Mycoplasma serology negative -Continue with Ceftriaxone 1gm daily day #5 -Continue with Azithromycin 500mg daily day #5 -Oxygen PRN -Will continue to monitor CBC -Pulm and ID on board Bilateral LE Edema -Trace pitting edema with no calf pain or tenderness -Will order Doppler of bilateral. Maculopapular [id number] -Possibly due to viral prodrome -Benadryl 50mg PO Q6H PRN -Tylenol 650mg Q6H PRN for pain Transaminitis- Resolved -Hepatitis panel negative -Will continue to monitor Hyponatremia-Resolved -IV fluids discontinued -Continue to trend CMP Asthma- Chronic -Continue Singulair -Continue Duoneb Prn -Pulmonary consult placed F/E/N -No fluids -Electrolytes wnl -Regular diet. Prophylaxis -Ambulates and SCD's for DVT Disposition -CT chest revealed right pleural effusion. Thoracocentesis scheduled today Visit type - Emergency Visit Emergency Visit: Yes ED Registration Date: 01/20/17 Care time: The patient presented to the Emergency Department on the above date and was hospitalized for further evaluation of their emergent condition. - New Patient This patient is new to me today: No - Critical Care Critical Care patient: No
--- NOTE | 2017-01-24 10:23 | PN ---
Progress Note (short form) - Note Progress Note: PULMONARY No further fevers. Does report mild shortness of breath. No chest pain. Rash improved. Last Vital Signs Temp Pulse Resp BP Pulse Ox 98.6 F 77 20 96/53 97 01/24/17 06:00 01/24/17 06:00 01/24/17 06:00 01/24/17 06:00 01/23/17 21:00 Gen: NAD at rest Heart: RRR Lung: decreased breath sounds right base 1/2 way up Abd: soft, nontender Ext: no edema, no clubbing CBC, BMP 01/24/17 07:00 01/24/17 07:00 Active Medications Acetaminophen (Tylenol -) 650 mg PO Q4H PRN PRN Reason: FEVER OR PAIN Last Admin: 01/22/17 08:04 Dose: 650 mg Albuterol/Ipratropium (Duoneb -) 1 amp NEB Q4H PRN PRN Reason: SHORT OF BREATH/WHEEZING Diphenhydramine HCl (Benadryl -) 50 mg PO Q6H PRN PRN Reason: FOR ITCHING Last Admin: 01/23/17 09:11 Dose: 50 mg Azithromycin (Zithromax 500mg Ivpb (Pre-Docked)) 250 mls @ 250 mls/hr IVPB DAILY [facility] Last Admin: 01/23/17 09:11 Dose: 250 mls/hr Ceftriaxone Sodium (Rocephin 1gm Ivpb (Pre-Docked)) 50 mls @ 100 mls/hr IVPB DAILY [facility] Last Admin: 01/23/17 09:10 Dose: 100 mls/hr Lactobacillus Acidophilus (Bacid -) 1 tab PO DAILY [facility] Last Admin: 01/23/17 09:10 Dose: 1 tab Montelukast Sodium (Singulair -) 10 mg PO HS [facility] Last Admin: 01/23/17 21:09 Dose: 10 mg A/P Pneumonia Pleural Effusion Asthma Rash Elevated LFTs - continue antibiotics - for right sided thoracentesis today - monitor fever curve, WBC trend - inhaled bronchodilators as needed - singulair - will need f/u chest imaging as outpt in 6-8 weeks to ensure resolution of infiltrate - DVT prophylaxis Problem List - Problems (1) Pneumonia Code(s): J18.9 - PNEUMONIA, UNSPECIFIED ORGANISM Qualifiers: Pneumonia type: due to unspecified organism Laterality: right Lung location: unspecified part of lung Qualified Code(s): J18.9 - Pneumonia, unspecified organism (2) Rash Code(s): R21 - RASH AND OTHER NONSPECIFIC SKIN ERUPTION (3) Asthma Code(s): J45.909 - UNSPECIFIED ASTHMA, UNCOMPLICATED
--- NOTE | 2017-01-24 11:52 | PN ---
Progress Note (short form) - Note Progress Note: ID Discussed with housestaff Afebrile Ceftriaxone Azithromycin Selected Entries 01/24/17 10:00 Temperature 98.6 F Pulse Rate 68 Respiratory 20 Rate Blood Pressure 103/58 Microbiology 01/20/17 19:34 Urine For Antigen Detection Legionella Antigen - Final 01/20/17 19:34 Urine For Antigen Detection Streptococcus pneumoniae Antigen (M - Final 01/20/17 18:00 Urine - Urine Clean Catch Urine Culture - Final NO GROWTH OBTAINED 01/20/17 17:36 Blood - Peripheral Venous Blood Culture - Preliminary NO GROWTH OBTAINED AFTER 72 HOURS, INCUBATION TO CONTINUE FOR 2 DAYS. 01/20/17 17:36 Blood - Peripheral Venous Blood Culture - Preliminary NO GROWTH OBTAINED AFTER 72 HOURS, INCUBATION TO CONTINUE FOR 2 DAYS. Laboratory Tests 01/21/17 01/21/17 01/21/17 10:25 10:25 10:25 WBC Hgb Hct Plt Count BUN Creatinine Cold Agglutinins Negative HIV 1&2 Antibody Screen Negative HIV P24 Antigen Negative M.pneumoniae IgG Titer <100 M.pneumoniae IgM Titer <770 01/24/17 01/24/17 07:00 07:00 WBC 7.9 Hgb 10.4 L Hct 30.4 L Plt Count 505 H BUN 9 Creatinine 0.4 L Cold Agglutinins HIV 1&2 Antibody Screen HIV P24 Antigen M.pneumoniae IgG Titer M.pneumoniae IgM Titer Assessment PNA with parapneumonic effusion likely Clinically doing well Plan Switch to po therapy Levofloxacin for another 72 hours Mirtha VUONG
[2017-01-24] MEDS: CEFTRIAXONE 50 ML IVPB SCH (12:07)
[2017-01-24] MEDS: AZITHROMYCIN IVPB 250 ML IVPB SCH (12:07)
[2017-01-24] MEDS: LACTOBACILLUS ACIDOPHILUS 1 EACH TAB (FP) PO SCH (12:12)
[2017-01-24 12:58] LABS: PLEURAL FLUID COLOR STRAW; PLEURAL FLUID SOURCE RIGHT PLEURAL
[2017-01-24 13:05] LABS: PLEURAL FLUID APPEARANCE CLEAR
[2017-01-24 13:14] LABS: GLUCOSE,PLEURAL FLUID 98.314; TOTAL PROTEIN,PLEURAL FLUID 2.606
[2017-01-24] MEDS: LEVOFLOXACIN 750 MG TABLET PO SCH (13:42)
[2017-01-24 16:24] LABS: PLEURAL FLUID LYMPHOCYTES 36 %; PLEURAL FLUID MACROPHAGES 9 %; PLEURAL FLUID NEUTROPHIL 31 %
--- NOTE | 2017-01-24 18:05 | PN ---
Teaching Attending Note Name of Resident: Brie Gustafson ATTENDING PHYSICIAN STATEMENT I saw and evaluated the patient. I reviewed the resident's note and discussed the case with the resident. I agree with the resident's findings and plan as documented. SUBJECTIVE: No complaints. OBJECTIVE: Vital Signs Period Temp Pulse Resp BP Sys/Funez Pulse Ox Last 24 Hr 98.6 F-98.8 F 68-80 18-20 96-108/52-58 94-97 HEART: S1 S2, RRR LUNGS: Crackles at right base ABDOMEN: Soft, non-tender, non-distended, normal BS EXTREMITIES: No edema ASSESSMENT AND PLAN: This is a 71-year-old woman with a history of asthma who presented to the ER with cough, SOB, weakness and a rash. 1. Sepsis secondary to pneumonia with right pleural effusion - Afebrile and WBC improved - s/p right thoracentesis today - Rocephin, Zithromax changed to Levaquin - Urine Legionella and Pneumococcal Ag negative, Mycoplasma, HIV serologies negative - Blood cultures negative - Chest CT shows RML/RLL/LLL infiltrates with moderate right effusion - Plan for thoracentesis 2. Macular rash - Improved - Continue Benadryl as needed 3. Hepatic transaminitis - Improved - Hepatitis panel negative 4. Hyponatremia - Improved
[2017-01-24] MEDS: MONTELUKAST NA 10 MG TABLET PO SCH (21:37)
[2017-01-24] MEDS: diphenhydrAMINE HCL 25 MG CAPSULE (FP) PO PRN (21:41)
[2017-01-25] MEDS: LEVOFLOXACIN 750 MG TABLET PO SCH (06:02)
[2017-01-25] MEDS ORDERED: INSULIN DETEMIR 100 UNITS/ML MDV SQ ONE (06:29)
[2017-01-25 08:04] LABS: MCH 32.1 pg (25.7-33.7); MCHC 34.6 g/dl (32.0-36.0); MEAN CELL VOLUME 92.7 fl (80-96); MEAN PLT VOLUME 7.2 fl (7.5-11.1); PLATELET COUNT 602 K/MM3 (134-434); WHITE BLOOD COUNT 7.9 K/mm3 (4.0-10.0)
[2017-01-25] MEDS: LACTOBACILLUS ACIDOPHILUS 1 EACH TAB (FP) PO SCH (09:11)
[2017-01-25 09:29] VITALS: BP 98/66; PULSE 65; TEMP 98.1
--- NOTE | 2017-01-25 12:18 | PN ---
Progress Note (short form) - Note Progress Note: PULMONARY STABLE/WANTS TO GO HOME VSS/AFEBRILE PALE/ANICTERIC RIGHT BASE CRACKLES S1S2 BS+ NO EDEMA LABS/MEDS/NOTES/IMAGING REVIEWED UNCOMPLICATED RIGHT PARA-PNEUMONIC EFFUSION A/P Pneumonia/Effusion Asthma Rash Elevated LFTs No objection to continuing treatment at home will need repeat imaging 4-6 weeks cytology needs to be checked Anabela ARROYO MD
--- NOTE | 2017-01-25 13:24 | PN ---
Progress Note, Physician Chief Complaint: ID Asymptomatic Feeling well - Current Medication List Current Medications: Active Medications Acetaminophen (Tylenol -) 650 mg PO Q4H PRN PRN Reason: FEVER OR PAIN Last Admin: 01/22/17 08:04 Dose: 650 mg Albuterol/Ipratropium (Duoneb -) 1 amp NEB Q4H PRN PRN Reason: SHORT OF BREATH/WHEEZING Diphenhydramine HCl (Benadryl -) 50 mg PO Q6H PRN PRN Reason: FOR ITCHING Last Admin: 01/24/17 21:41 Dose: 50 mg Lactobacillus Acidophilus (Bacid -) 1 tab PO DAILY [facility] Last Admin: 01/25/17 09:11 Dose: 1 tab Levofloxacin (Levaquin) 750 mg PO DAILY@0600 [facility] Last Admin: 01/25/17 06:02 Dose: 750 mg Montelukast Sodium (Singulair -) 10 mg PO HS [facility] [place] Last Admin: 01/24/17 21:37 Dose: 10 mg - Objective Vital Signs: Vital Signs Temperature 98.1 F 01/25/17 09:29 Pulse Rate 65 01/25/17 09:29 Respiratory Rate 18 01/25/17 09:29 Blood Pressure 98/66 01/25/17 09:29 O2 Sat by Pulse Oximetry (%) 96 01/25/17 09:00 Constitutional: Yes: No Distress HENT: Yes: WNL, Atraumatic Neck: Yes: WNL, Supple Respiratory: Yes: WNL, Regular, CTA Bilaterally Gastrointestinal: Yes: WNL, Normal Bowel Sounds, Soft. No: Tenderness Edema: No Labs: CBC, BMP 01/25/17 06:30 01/24/17 07:00 INR, PTT INR 1.23 (0.82-1.09) H 01/24/17 07:00 Assessment/Plan Microbiology 01/24/17 11:51 Pleural Fluid LETY Preparation - Preliminary 01/24/17 11:51 Pleural Fluid Fungal Culture - Preliminary 01/24/17 11:51 Pleural Fluid Body Fluid Culture - Preliminary NO AEROBIC GROWTH, 24 HRS 01/24/17 11:51 Pleural Fluid AFB Smear Concentration - Preliminary 01/24/17 11:51 Pleural Fluid Mycobacterial Culture - Preliminary Laboratory Tests 01/24/17 01/24/17 01/25/17 07:00 11:51 06:30 WBC 7.9 Hgb 11.8 D Hct 34.2 Plt Count 602 H BUN 9 Creatinine 0.4 L Pleural WBC 1,681 Pleural RBC 810 Pleural Neutrophils 31 Pleural Lymphocytes 36 Pleural Eosinophils 2 Pleural Total Protein 2.606 Pleural Glucose 98.314 Assessment Pneumonia with parapneumonic effusion Rash ? viral Plan PO levoflox another 2 days with out patient f/u cultures fluid ect Mirtha VUONG
--- NOTE | 2017-01-25 13:30 | DS ---
Physical Exam: SUBJECTIVE: Patient seen and examined by me at bedside. No overnight events noted. Patient offers no complaints and denies any fever, chills, nausea, vomiting, abdominal pain, chest pain, palpitations, shortness of breath. OBJECTIVE: Vital Signs Period Temp Pulse Resp BP Sys/Funez Pulse Ox Last 24 Hr 98.1 F-99 F 65-74 18-20 98-102/52-67 94-96 PHYSICAL EXAM ENERAL: The patient is awake, alert, and fully oriented, in no acute distress. LUNGS: Decreased breath sounds in Right base. No wheezes or accessory muscle use. HEART: Regular rate and rhythm, S1, S2 without murmur, rub or gallop. ABDOMEN: Soft, nontender, nondistended, normoactive bowel sounds, no guarding. EXTREMITIES: trace pitting edema of bilateral lower extremities with bilateral swelling of the feet. LABS Laboratory Results - last 24 hr 01/24/17 01/25/17 01/25/17 11:51 06:30 09:11 WBC 7.9 RBC 3.69 Hgb 11.8 D Hct 34.2 MCV 92.7 MCHC 34.6 RDW 14.0 Plt Count 602 H MPV 7.2 L LD Total 167 Pleural Neutrophils 31 Pleural Lymphocytes 36 Pleural Monocytes 22 Pleural Eosinophils 2 Pleural Macrophages 9 Pleural Albumin 1 Pleural LDH 79 Pleural Triglycerides 11 Chest X-ray (01/20/17): Right lower lobe consolidation consistent with Pneumonia. Chest CT (01/23/17): Right middle lobe, right lower lobe pneumonia involving the majority of segments of the right lower lobe with moderate reactive right pleural effusion. Right parahilar airspace opacities of infectious etiology. Several peribronchial airspace opacities are noted in left lower lobe of infectious etiology. No endobronchial lesion is lesion. HOSPITAL COURSE: Patient is a 71 year old female with a PMHx of asthma who presented for a non- productive cough, shortness of breath and a diffuse maculopapular rash. Patien was found to have leukocytosis and chest x-ray revealed right lower lobe pneumonia. Patient was admitted for community acquired pneumonia. Blood and sputum cultures were negative as well as urine antigens. Patient was started on Ceftriaxone and azithromycin. The rash and joint pain was occuring intermittently throughout the hospital course but with adequate control on Tylenol and Benadryl. Patient however continued to get low grade fevers and pulmonology was consulted. CT was recommended and done. CT revealed pleural effusions and patient was scheduled for Thoracocentesis, which showed uncomplicated right para-pneumonic effusion. Patient's symptoms improved throughout the course and she was switched to levaquin PO. Patient stable now for discharge and will continue another two more days of Levaquin, as per ID. Patient discharged today (01/25/17) on Levaquin 750mg once daily for two days. Date of Admission:01/20/17 Date of Discharge: 01/25/17 Minutes to complete discharge: 35 Discharge Summary Reason For Visit: PITYRIASIS [place]/PNEUMONIA Current Active Problems Joint ache (Acute) Pneumonia (Acute) Rash (Acute) Asthma (Chronic) Condition: Stable - Instructions Diet, Activity, Other Instructions: -You were admitted to the hospital for pneumonia with a rash and joint pain. 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 Please set up an appointment within a week. -Please return to the pulmonologists office for a repeat chest x-ray and labs in a month -You may resume work Referrals: Chan Rashid MD [Staff Physician] - Kike Gomez MD [Staff Physician] - Disposition: HOME - Home Medications Comprehensive Discharge Medication List: Ambulatory Orders Montelukast Na [Singulair -] 10 mg PO HS 01/20/17 Lactobacillus Acidophilus [Bacid -] 1 tab PO DAILY tab 01/25/17 Levofloxacin [Levaquin] 750 mg PO DAILY@0600 #2 tab 01/25/17 This patient is new to me today: No Emergency Visit: Yes ED Registration Date: 01/20/17 Care time: The patient presented to the Emergency Department on the above date and was hospitalized for further evaluation of their emergent condition. Critical Care patient: No - Discharge Referral Referred to [facility] Med [facility] No
--- NOTE | 2017-01-25 16:10 | PATH ---
Cytology Non-Gynecological Report Patient Name: TEZ MAYA Med. Rec. #: [id number] /Age/Gender: 1945 (Age: 71) / F Account: [id number] Location: [facility] MED/SURG Taken: 01/24/2017 Received: 01/24/2017 Reported: 01/25/2017 Physicians: Rajeev Lucero M.D. Specimen(s) Received A: RIGHT PLEURAL FLUID IN 50% ALCOHOL B: RIGHT PLEURAL FLUID FRESH Clinical History Pleural effusion Final Diagnosis A,B. PLEURAL FLUID, RIGHT, THORACENTESIS: SATISFACTORY FOR EVALUATION. NO MALIGNANT CELLS IDENTIFIED. REACTIVE MESOTHELIAL CELLS, HISTIOCYTES AND MIXED INFLAMMATORY CELLS. Comment: Immunohistochemical stain for BerEp4/DANNY performed and interpreted on cell block B [facility] is negative in the effusion cells, supporting the interpretation above. Electronically Signed Morgan Uribe M.D. Gross Description A. Received is a 50 cc of yellow fluid in 50% alcohol. One cytofunnel slide and one cell block are made. B. Received is 2000 cc of yellow fluid fresh. One cytofunnel slide and one cell block are made.
--- NOTE | 2017-01-25 18:38 | PN ---
Teaching Attending Note Name of Resident: Brie Gustafson ATTENDING PHYSICIAN STATEMENT I saw and evaluated the patient. I reviewed the resident's note and discussed the case with the resident. I agree with the resident's findings and plan as documented. SUBJECTIVE: No complaints. OBJECTIVE: Vital Signs Period Temp Pulse Resp BP Sys/Funez Pulse Ox Last 24 Hr 98.1 F-99 F 65-66 18-20 98-102/66-67 94-96 HEART: S1 S2, RRR LUNGS: Crackles at right base ABDOMEN: Soft, non-tender, non-distended, normal BS EXTREMITIES: No edema ASSESSMENT AND PLAN: This is a 71-year-old woman with a history of asthma who presented to the ER with cough, SOB, weakness and a rash. 1. Sepsis secondary to pneumonia with right parapneumonic effusion - Afebrile and WBC improved - s/p right thoracentesis 01/24 - Discharge on Levaquin - Urine Legionella and Pneumococcal Ag negative, Mycoplasma, HIV serologies negative - Blood cultures negative - Pulmonary follow-up for cytology, repeat imaging 2. Macular rash - Improved - Continue Benadryl as needed 3. Hepatic transaminitis - Improved - Hepatitis panel negative 4. Hyponatremia - Improved
== END 2017-01-25 14:00 | disposition home or self-care (01) | DRG 871 ==
LOC: JER 14:05 → JERBED 18:54 → J8W 21:30
PROVIDERS: ADMIT Internal Medicine; ATTEND Internal Medicine
PROC: 0W993ZX Drainage of Right Pleural Cavity, Percutaneous Approach, Diagnostic (ICD-10-PCS; principal; 2017-01-24)
DX: A41.9 Sepsis, unspecified organism (principal); J18.9 Pneumonia, unspecified organism; J90 Pleural effusion, not elsewhere classified; E87.1 Hypo-osmolality and hyponatremia; D72.829 Elevated white blood cell count, unspecified; J45.909 Unspecified asthma, uncomplicated; R21 Rash and other nonspecific skin eruption; R74.0 Nonspecific elevation of levels of transaminase and lactic acid dehydrogenase [LDH]; Z87.891 Personal history of nicotine dependence
CPT/HCPCS: 36415; 71010-TC; 71020-TC; 71250-TC; 76942; 80048; 80053; 80074; 80076; 81003; 82042; 82150; 82550; 82945; 83605; 83615; 83735; 83880; 84157; 84478; 84484; 85025; 85027; 85610; 85730; 86157; 86738; 87040; 87070; 87075; 87086; 87102; 87116; 87205; 87206; 87210; 87389; 87899; 88108; 88305-TC; 89051; 93005; 93010; 97116-GP; 97161-GP; 99285-25